=== PATIENT | male | born 1980 | race Caucasian/White ===

== ENCOUNTER 2018-10-08 21:22 | Emergency (ER) | payer MEDICAID, OTHER ==
[~2018-10-08] VITALS: Ht 182.9 cm; Wt 86.4 kg
[~2018-10-08 21:22] MED LIST: NO HOME MEDS
--- NOTE | 2018-10-08 21:37 | NUR ---
BIB police after fight with police. Patient is with Dr. Rojo and BLUE Markham who are examining his right shoulder.
[2018-10-08] MEDS ORDERED: ketamine 50 mg/ml 10ml vial IV ONE (21:50)
[2018-10-08] MEDS ORDERED: propofol 10mg/ml 20ml vial IV ONE (22:00)
--- NOTE | 2018-10-08 22:13 | NUR ---
Pending right shoulder reduction
--- NOTE | 2018-10-08 22:28 | NUR ---
Right shoulder reduction success, arm in sling. Post procedure vitals in progress
[2018-10-08 23:04] VITALS: BP 142/88
== END 2018-10-08 23:06 ==
LOC: ER 21:23
DX: S43.084A Other dislocation of right shoulder joint, initial encounter (principal); Z88.5 Allergy status to narcotic agent; Y04.0XXA Assault by unarmed brawl or fight, initial encounter; Y93.89 Activity, other specified; Y92.89 Other specified places as the place of occurrence of the external cause; Y99.9 Unspecified external cause status
CPT/HCPCS: 23650; 73020; 73030; 99285; J2704

== ENCOUNTER 2018-11-18 08:12 | Emergency (ER) | payer OTHER ==
[~2018-11-18] VITALS: Ht 177.8 cm; Wt 79.0 kg
[2018-11-18 08:44] VITALS: BP 124/70
[2018-11-18] MEDS ORDERED: ketorolac tromethamine 15mg/ml inj. IM ONE (09:25)
== END 2018-11-18 10:01 | disposition home or self-care (01) ==
LOC: ER 08:14
DX: M25.511 Pain in right shoulder (principal); Z88.5 Allergy status to narcotic agent
CPT/HCPCS: 73030; 96372; 99284; J1885

== ENCOUNTER 2018-12-19 15:43 | Outpatient (CLI) | payer OTHER | END 2018-12-19 15:50 | disposition home or self-care (01) | LOC: ORTHO 15:43 | PROVIDERS: ATTEND Orthopaedic Surgery | DX: S43.084D Other dislocation of right shoulder joint, subsequent encounter (principal); X58.XXXD Exposure to other specified factors, subsequent encounter | CPT/HCPCS: G0463 ==

== ENCOUNTER 2019-09-17 08:20 | Emergency (ER) | payer MEDICAID ==
[~2019-09-17] VITALS: Ht 177.8 cm; Wt 91.8 kg
[2019-09-17 09:11] VITALS: BP 95/65
== END 2019-09-17 09:12 | disposition home or self-care (01) ==
LOC: ER 08:21
DX: F15.10 Other stimulant abuse, uncomplicated (principal); Z88.5 Allergy status to narcotic agent; F32.9 Major depressive disorder, single episode, unspecified; F41.9 Anxiety disorder, unspecified; Z59.0 Homelessness
CPT/HCPCS: 99281

== ENCOUNTER 2020-02-10 21:06 | Emergency (ER) | payer MEDICAID ==
[~2020-02-10] VITALS: Ht 175.3 cm; Wt 100.0 kg
[2020-02-10] MEDS ORDERED: LIDOcaine 1% W/epiNEPHrine 1:200,000 10ml vial IJ ONE (21:30)
[2020-02-10] MEDS ORDERED: TETanus/Pertussis (Acell)/Diphther VAC/PF (Tdap-Adult) 0.5ml syringe IMVAC ONE (21:30)
[2020-02-10] MEDS ORDERED: LIDOcaine 1% w/epiNEPHrine 1:200,000 30ml vial IJ ONE (21:35)
[2020-02-10] MEDS ORDERED: ketorolac tromethamine 15mg/ml inj. IM ONE (22:25)
[2020-02-10 23:10] VITALS: BP 113/64
== END 2020-02-10 23:11 | disposition home or self-care (01) ==
LOC: ER 21:07
DX: S13.4XXA Sprain of ligaments of cervical spine, initial encounter (principal); R51.9 Headache, unspecified; Z88.0 Allergy status to penicillin; V49.9XXA Car occupant (driver) (passenger) injured in unspecified traffic accident, initial encounter; Y93.89 Activity, other specified; Y92.89 Other specified places as the place of occurrence of the external cause; Y99.8 Other external cause status
CPT/HCPCS: 72050; 96372; 99283; J1885

== ENCOUNTER 2021-03-02 14:16 | Emergency (ER) | payer MEDICAID ==
[~2021-03-02] VITALS: Ht 177.8 cm; Wt 95.5 kg
== END 2021-03-02 20:11 | disposition left against medical advice (07) ==
LOC: ER 14:17
DX: S61.411A Laceration without foreign body of right hand, initial encounter (principal); Z53.21 Procedure and treatment not carried out due to patient leaving prior to being seen by health care provider; W26.0XXA Contact with knife, initial encounter; Y93.89 Activity, other specified; Y92.89 Other specified places as the place of occurrence of the external cause; Y99.8 Other external cause status

== ENCOUNTER 2022-01-16 15:13 | Emergency (ER) | payer MEDICAID ==
[2022-01-16 15:29] VITALS: BP 150/78
[2022-01-16] MEDS ORDERED: ibuprofen tablet 400 MG TABLET PO ONE (15:50)
== END 2022-01-16 16:44 | disposition home or self-care (01) ==
LOC: ER 15:14
DX: M25.561 Pain in right knee (principal); F15.10 Other stimulant abuse, uncomplicated; Z88.5 Allergy status to narcotic agent; V87.7XXA Person injured in collision between other specified motor vehicles (traffic), initial encounter; Y93.89 Activity, other specified; Y92.89 Other specified places as the place of occurrence of the external cause; Y99.8 Other external cause status
CPT/HCPCS: 73564; 99283; A6449

== ENCOUNTER 2022-01-29 23:49 | Emergency (ER) | payer MEDICAID | END 2022-01-30 00:05 | disposition left against medical advice (07) | LOC: ER 23:50 | DX: M79.609 Pain in unspecified limb (principal); Z53.21 Procedure and treatment not carried out due to patient leaving prior to being seen by health care provider ==

== ENCOUNTER 2022-02-11 02:32 | Emergency (ER) | payer MEDICAID ==
[~2022-02-11] VITALS: Ht 177.8 cm; Wt 79.0 kg
[2022-02-11 02:39] VITALS: BP 140/83
[2022-02-11] MEDS ORDERED: ibuprofen tablet 400 MG TABLET PO ONE (05:15)
== END 2022-02-11 05:53 | disposition home or self-care (01) ==
LOC: ER 02:32
DX: M79.601 Pain in right arm (principal); F12.10 Cannabis abuse, uncomplicated
CPT/HCPCS: 99283

== ENCOUNTER 2022-02-27 06:55 | Emergency (ER) | payer MEDICAID ==
[~2022-02-27] VITALS: Ht 180.3 cm; Wt 87.0 kg
[2022-02-27 07:05] VITALS: BP 113/68
== END 2022-02-27 08:00 | disposition home or self-care (01) ==
LOC: ER 06:55
DX: M25.511 Pain in right shoulder (principal); F15.90 Other stimulant use, unspecified, uncomplicated; Z88.5 Allergy status to narcotic agent; Z79.899 Other long term (current) drug therapy
CPT/HCPCS: 99282; A4565

== ENCOUNTER 2022-03-01 01:01 | Emergency (ER) | payer MEDICAID ==
[~2022-03-01] VITALS: Ht 167.6 cm; Wt 90.9 kg
[2022-03-01 01:29] VITALS: BP 134/78
== END 2022-03-01 03:52 | disposition home or self-care (01) ==
LOC: ER 01:02
DX: B34.9 Viral infection, unspecified (principal); Z20.822 Contact with and (suspected) exposure to COVID-19
CPT/HCPCS: 87502; 87503; 87635; 99283; C9803

== ENCOUNTER 2022-03-30 13:06 | Emergency (ER) | payer MEDICAID ==
[~2022-03-30] VITALS: Ht 177.8 cm; Wt 90.9 kg
[2022-03-30 13:16] VITALS: BP 124/70
== END 2022-03-30 19:39 | disposition left against medical advice (07) ==
LOC: ER 13:07
DX: K08.89 Other specified disorders of teeth and supporting structures (principal); Z53.21 Procedure and treatment not carried out due to patient leaving prior to being seen by health care provider

== ENCOUNTER 2023-07-29 19:06 | Emergency (ER) | payer MEDICAID, OTHER ==
[~2023-07-29] VITALS: Ht 177.8 cm; Wt 112.7 kg
[2023-07-29 19:08] VITALS: BP 116/76; PULSE 71; O2SAT 96
[2023-07-29] MEDS: TETanus/Pertussis (Acell)/Diphther VAC/PF (Tdap-Adult) 0.5ml syringe IMVAC ONE (21:06)
[2023-07-29] MEDS: LIDOcaine 1% 30ml preserv. free vial SQ STA (21:35)
[2023-07-29 21:54] VITALS: RESP 17; TEMP 98.6
== END 2023-07-29 22:00 | disposition home or self-care (01) ==
LOC: ER 19:07
DX: S61.012A Laceration without foreign body of left thumb without damage to nail, initial encounter (principal); F15.90 Other stimulant use, unspecified, uncomplicated; Z88.5 Allergy status to narcotic agent; W26.0XXA Contact with knife, initial encounter; Y93.89 Activity, other specified; Y92.89 Other specified places as the place of occurrence of the external cause; Y99.8 Other external cause status
CPT/HCPCS: 12001; 90471; 90715; 99283; J7030; A6258; A6449

== ENCOUNTER 2023-07-30 14:46 | Emergency (ER) | payer OTHER ==
[~2023-07-30] VITALS: Ht 170.2 cm; Wt 113.4 kg
[2023-07-30 15:19] VITALS: BP 126/84; PULSE 70; O2SAT 98
[2023-07-30 15:59] VITALS: RESP 17; TEMP 98.5
== END 2023-07-30 16:01 | disposition home or self-care (01) ==
LOC: ER 14:47
DX: S61.210A Laceration without foreign body of right index finger without damage to nail, initial encounter (principal); Z88.5 Allergy status to narcotic agent; X58.XXXA Exposure to other specified factors, initial encounter; Y93.89 Activity, other specified; Y92.89 Other specified places as the place of occurrence of the external cause; Y99.8 Other external cause status
CPT/HCPCS: 99281

== ENCOUNTER 2023-10-15 03:11 | Emergency (ER) | payer MEDICAID, OTHER ==
[~2023-10-15] VITALS: Ht 175.3 cm; Wt 90.9 kg
[2023-10-15 03:25] VITALS: BP 131/86; PULSE 116; RESP 20; O2SAT 96
[2023-10-15 04:27] VITALS: TEMP 99.3
== END 2023-10-15 04:30 | disposition home or self-care (01) ==
LOC: ER 03:12
DX: F15.129 Other stimulant abuse with intoxication, unspecified (principal); F17.200 Nicotine dependence, unspecified, uncomplicated; R07.89 Other chest pain; Z88.5 Allergy status to narcotic agent
CPT/HCPCS: 93005; 99283

== ENCOUNTER 2024-02-22 16:59 | Emergency (ER) | payer MEDICAID ==
[~2024-02-22] VITALS: Ht 177.8 cm; Wt 95.5 kg
[2024-02-22 17:00] VITALS: BP 145/62; PULSE 97; RESP 16; TEMP 99.5; O2SAT 98
[2024-02-22] MEDS: ondansetron 4mg rapidly disintigrating tab PO ONE (20:15)
[2024-02-22] MEDS ORDERED: ONDA-245 PO (21:28)
== END 2024-02-22 21:34 | disposition home or self-care (01) ==
LOC: ER 17:00
DX: B34.9 Viral infection, unspecified (principal); F15.90 Other stimulant use, unspecified, uncomplicated; Z88.5 Allergy status to narcotic agent; Z20.822 Contact with and (suspected) exposure to COVID-19
CPT/HCPCS: 36415; 87502; 87503; 87811; 99283

== ENCOUNTER 2024-03-23 00:36 | Emergency (ER) | payer MEDICAID ==
[~2024-03-23] VITALS: Ht 170.2 cm; Wt 92.5 kg
[~2024-03-23 00:36] MED LIST changes: +ONDA-245 PO
[2024-03-23 00:40] VITALS: BP 112/70; PULSE 71; RESP 18; TEMP 97.7; O2SAT 98
[2024-03-23] MEDS: acetaminophen 325mg tablet PO ONE (01:41)
== END 2024-03-23 01:45 | disposition home or self-care (01) ==
LOC: ER 00:37
DX: S00.01XA Abrasion of scalp, initial encounter (principal); Z88.5 Allergy status to narcotic agent; V09.9XXA Pedestrian injured in unspecified transport accident, initial encounter; Y93.89 Activity, other specified; Y92.89 Other specified places as the place of occurrence of the external cause; Y99.8 Other external cause status
CPT/HCPCS: 99282

== ENCOUNTER 2024-08-14 21:36 | Emergency (ER) | payer MEDICAID ==
[~2024-08-14] VITALS: Ht 167.6 cm; Wt 80.0 kg
[2024-08-15] MEDS ORDERED: NYST15CR TOP (01:26)
--- NOTE | 2024-08-15 01:26 | Physician Documentation ---
History of Present Illness ~ Chief Complaint: Foot pain Stated Complaint: FOOT PAIN Time Seen by MD: 01:20 Primary Medical Doctor: [facility] HPI Patient presents to the emergency room for evaluation of skin irritation to bilateral feet. He believes this is secondary to excessive moisture as he ran out of socks. No fevers. Tetanus witin 5 years: Yes Medication Reconciliation Allergies: Coded Allergies: codeine (Verified Allergy, Unknown, 02/22/24) N/V Scheduled Ondansetron 8mg ODT (Ondansetron Odt), 1 TAB PO Q6H Miscellaneous Medications Home Med List (No Home Medications), (Reported) Past Medical History Past Medical History: No Pertinent History Past Surgical History: noncontributory Alcohol Use: None Drug Use: methamphetamine Lives with: Family Lives In: Assisted Care Review of Systems ROS All review of systems negative except as per HPI Physical Exam Vital Signs: Temperature: 98.2, Source: Oral, Heart Rate: 86, Respiratory Rate: 16, BP: 134/72, Pulse Oximetry: 99, Weight: 80.000 Oxygen Flow Rate: 0 Physical Exam General: Patient is awake, alert, oriented x4 in no acute distress and well appearing.~ Head: Normocephalic and atraumatic. Eyes: Conjunctival normal. EOMI. PERRL. ENT: Mucous membranes moist. Neck: Supple, trachea is midline. Chest: Clear to auscultation bilaterally without rales, rhonchi, or wheezes. There is no accessory muscle use or retractions. Cardiac: RRR without murmurs, gallops, or rubs. Extremities: Bilateral fungal infection to toes. Feet appear water logged Progress Results/Orders Results/Orders Vital Signs 08/14/24 21:38 Temp 98.2 Pulse 86 Resp 16 B/P (MAP) 134/72 Pulse Ox 99 O2 Flow Rate 0 Medical Decision Making Findings Patient presents to the emergency room for evaluation of bilateral foot changes as per HPI. Differentials include but are not limited to trench foot, fungal infection, cellulitis. Symptoms consistent with trench foot with superimposed fungal infection. Symptoms are mild and he had not feel he requires emergent labs or imaging. Foot hygiene discussed Departure Disposition: HOME / SELF CARE / HOMELESS Impression: Primary Impression: Trench foot Condition: Stable Discharge Instructions: Athlete's Foot, [id number] Additional Instructions: Keep feet dry as much as possible. Referrals: NO PRIMARY CARE PROVIDER (PCP) Prescriptions Nystatin (Nystatin) 100,000 Unit/Gram Cream.gm. 1 APPLIC TOP Q8H for 5 Days, #15 GM 0 Refills apply to affected area(s) Prov: SENTHIL SARGENT MD 08/15/24 Education Educated: Patient Educated regarding: diagnosis, treatment, need for follow up Signature Scribe Signature: No scribe Attestation: The note accurately reflects work and decisions made by me.Senthil Sargent MD 08/15/24 01:26 SENTHIL SARGENT MD Aug 15, 2024 01:26
[2024-08-15 01:40] VITALS: BP 130/70; PULSE 84; RESP 16; TEMP 98.6; O2SAT 99
== END 2024-08-15 01:41 | disposition home or self-care (01) ==
LOC: ER 21:36
DX: T69.022A Immersion foot, left foot, initial encounter (principal); T69.021A Immersion foot, right foot, initial encounter; Z88.5 Allergy status to narcotic agent; X58.XXXA Exposure to other specified factors, initial encounter; Y93.89 Activity, other specified; Y92.89 Other specified places as the place of occurrence of the external cause; Y99.8 Other external cause status
CPT/HCPCS: 99283

== ENCOUNTER 2024-10-17 10:44 | Emergency (ER) | payer MEDICAID ==
[~2024-10-17] VITALS: Ht 167.6 cm; Wt 89.7 kg
[~2024-10-17 10:44] MED LIST changes: +NYST15CR TOP
[2024-10-17 10:48] VITALS: BP 109/65; PULSE 72; RESP 18; O2SAT 97
--- NOTE | 2024-10-17 11:05 | Physician Documentation ---
History of Present Illness ~ Chief Complaint: Rash Stated Complaint: POISON OAK Time Seen by MD: 10:58 Primary Medical Doctor: [facility] 44-year-old male who presents to the emergency department for evaluation of what he believes is poison oak or poison nelia after walking through the [place] all day. Reports and visual exposure to both poison oak and poison nelia over the last day. She reports it is very itchy and continuing to spread. Medication Reconciliation Allergies: Coded Allergies: codeine (Verified Allergy, Unknown, 10/17/24) N/V Scheduled Nystatin (Nystatin), 1 APPLIC TOP Q8H Ondansetron 8mg ODT (Ondansetron Odt), 1 TAB PO Q6H Miscellaneous Medications Home Med List (No Home Medications), (Reported) Past Medical History Past Medical History: No Pertinent History Past Surgical History: noncontributory Alcohol Use: None Drug Use: methamphetamine Lives with: Family Lives In: Assisted Care Review of Systems ROS As stated above in the HPI, otherwise all systems are reviewed and negative. Physical Exam Vital Signs: Temperature: 97.4, Source: Oral, Heart Rate: 72, Respiratory Rate: 18, BP: 109/65, Pulse Oximetry: 97, Weight: 89.700 Oxygen Flow Rate: 0 Physical Exam VITALS: Reviewed and as above. GENERAL: Alert, no apparent distress. HEENT: Normocephalic, atraumatic, PERRL, EOMI, dry mucosa, no erythema RESPIRATORY: Lungs clear, normal breath sounds, no respiratory distress. CHEST: No accessory muscle use, no retractions CV: Regular rate, rhythm, no edema, no murmur, No: JVD GI: Soft, non-tender, bowels sounds present, no rebound, guarding, or rigidity BACK: No CVA tenderness, or swelling MUSCULOSKELETAL No deformities, no edema SKIN: Warm and dry, diffuse areas of rash consistent with poison oak to james ateral upper extremities trunk and face NEURO: Oriented x4, No motor or sensory deficit PSYCH: Normal mood and affect, no agitation Progress Results/Orders Results/Orders Vital Signs 10/17/24 10/17/24 10:48 11:22 Temp 97.4 97.4 Pulse 72 Resp 18 B/P (MAP) 109/65 Pulse Ox 97 O2 Flow Rate 0 Medical Decision Making Findings This patient who presents with rash poison oak x2 days. History and exam findings not consistent with dangerous etiologies of rash such as SJS/TEN, or secondary dangerous causes such as petechial rashes from thrombocytopenia or rickettsial infections. Rash does not appear urticarial with no signs of anaphylaxis either. Plan at this time is to treat symptomatically, instruct to follow up with PCP or derm PRN. Treated with IM injection of Kenalog Benadryl told to follow up with primary care provider or return to the emergency department if he has any worsening of current symptoms or any additional concerning symptoms present. Differential Dx:Considerations: Include: Abscess, AIDS/HIV, Anthrax (cutaneous), Atopic dermatitis, Candidiasis, Contact dermatitis, Drug reaction, Erythema multiforme, Erysipelas, Gangrene, Herpes zoster, Herpes simplex, Hidradenitis suppurativa, Impetigo, Intertrigo, Lymes disease, Molluscum contagiosum, Osteomyelitis, Pediculosis, Pityriasis rosea, Psoriaisis, RMSF, Rosacea, Scabies, Scarlet fever, Tinea, Urticaria, Varicella, Viral exanthema, Other Departure Disposition: HOME / SELF CARE / HOMELESS Impression: Primary Impression: Allergic contact dermatitis Additional Impression: Poison oak Condition: Stable Discharge Instructions: Contact Dermatitis, Pruritus Additional Instructions: For evaluation of contact dermatitis probably poison oak or poison nelia. At a you were given an injection of Kenalog and Benadryl please follow-up with your primary care provider or return to the emergency department if you have any additional symptoms or any concerning symptoms beyond what we evaluated today. Referrals: NO PRIMARY CARE PROVIDER (PCP) Education Educated: Patient Educated regarding: treatment, need for follow up Signature Scribe Signature: . Attestation: I have reviewed this case [id number] with the PA, including physical examination, laboratory and imaging results as appropriate. The patient was evaluated [id number] and I agree with the PA's notes. I agree with the findings, evaluation and disposition. ABELINO ANDRE Oct 17, 2024 11:05 KELSI SINGLETARY MD Oct 18, 2024 16:20
[2024-10-17] MEDS: triamcinolone acetonide 40mg/ml inj IM ONE (11:10)
[2024-10-17 11:22] VITALS: TEMP 97.4
== END 2024-10-17 11:24 | disposition home or self-care (01) ==
LOC: ER 10:45
DX: L23.7 Allergic contact dermatitis due to plants, except food (principal); F15.90 Other stimulant use, unspecified, uncomplicated; Z88.5 Allergy status to narcotic agent
CPT/HCPCS: 96372; 99283; J3301; Q0163

== ENCOUNTER 2024-10-20 15:57 | Emergency (ER) | payer MEDICAID ==
[~2024-10-20] VITALS: Ht 172.7 cm; Wt 56.4 kg
[2024-10-20 16:37] VITALS: BP 133/62; PULSE 89; RESP 16; TEMP 98.5; O2SAT 99
--- NOTE | 2024-10-20 16:45 | Physician Documentation ---
History of Present Illness ~ Chief Complaint: Extremity Swelling Stated Complaint: [facility] Primary Medical Doctor: [facility] HPI HPI being completed as part of medical screening exam: This is a 44-year-old male who presented with sudden onset left lower extremity swelling and pain with subjective fevers. He has had wounds present to the left lower extremity but states that this morning he woke up and it was significantly swollen with fever to the leg. Tetanus witin 5 years: Yes Medication Reconciliation Allergies: Coded Allergies: codeine (Verified Allergy, Unknown, 10/17/24) N/V Scheduled Nystatin (Nystatin), 1 APPLIC TOP Q8H Ondansetron 8mg ODT (Ondansetron Odt), 1 TAB PO Q6H Miscellaneous Medications Home Med List (No Home Medications), (Reported) Past Medical History Past Medical History: No Pertinent History Past Surgical History: noncontributory Alcohol Use: None Drug Use: methamphetamine Lives with: Family Lives In: Assisted Care Physical Exam Pulse Oximetry Reflects: adequate oxygenation Physical Exam Medical screening exam: Patient presents with left leg swelling, multiple weeping superficial wounds to the skin and warmth to palpation of the left leg. Location around the knee and up to the mid thigh. Cardiac: Regular rate and rhythm. Respiratory: Lungs are clear. Progress Results/Orders Results/Orders Vital Signs 10/20/24 16:37 Temp 98.5 Pulse 89 Resp 16 B/P (MAP) 133/62 Pulse Ox 99 O2 Flow Rate 0 Medical Decision Making Findings Patient presents through the emergency department with left lower extremity swelling sudden onset with pain and erythema and warmth to palpation. Concern for significant cellulitis. Currently, waiting room. Departure Disposition: 07 LEFT AWOL/ELOPED Impression: Primary Impression: Cellulitis of left lower extremity Referrals: NO PRIMARY CARE PROVIDER (PCP) Signature Scribe Signature: No scribe Attestation: The note accurately reflects work and decisions made by me.Venita Jones NP 10/22/24 15:34 This note was created with the assistance of voice recognition software whereby errors in grammar, syntax, and/or spelling may have occurred despite active proofreading efforts by the author. Please do not hesitate to contact the provider for clarification or for questions regarding the content of this document. VENITA PARK NP Oct 20, 2024 16:45
== END 2024-10-20 19:43 | disposition left against medical advice (07) ==
LOC: ER 15:58
DX: L03.116 Cellulitis of left lower limb (principal); Z88.5 Allergy status to narcotic agent
CPT/HCPCS: 99282

== ENCOUNTER 2024-10-20 21:44 | Inpatient (IN) | payer MEDICAID ==
[~2024-10-20] VITALS: Ht 195.6 cm; Wt 91.4 kg
[2024-10-20] MEDS: triamcinolone acetonide 40mg/ml inj IM ONE (23:49)
[2024-10-21 00:07] LABS: MEAN PLATELET VOLUME 7.6 FL (7.4-10.4); RED CELL DISTRIBUTION WIDTH 13.6 % (11.5-14.5)
[2024-10-21 00:19] LABS: CREATININE 1.22 MG/DL (0.60-1.10); TOTAL CARBON DIOXIDE 27.0 MMOL/L (24-32); eCRCL 96 ML/MIN; eGFR 64 ML/MIN
[2024-10-21] MEDS: CefTRIAXone/D5W-Rocephin 1gm 50 ML IV ONE (00:58)
[2024-10-21] MEDS ORDERED: potassium Cl 40MEQ/1/2NS 520ml 520 ML IV PRN (01:05)
[2024-10-21] MEDS ORDERED: mag hydrox/Alum hydrox/simeth 30ml oral suspension PO PRN (01:05)
[2024-10-21] MEDS ORDERED: magnesium sulf-water 2g/50mL 50 ML IV PRN (01:05)
[2024-10-21] MEDS ORDERED: potassium Cl 20 mEq SR tablet PO PRN (01:05)
[2024-10-21] MEDS ORDERED: magnesium sulf-water 4G/100mL 100 ML IV PRN (01:05)
[2024-10-21] MEDS ORDERED: ondansetron/PF 4mg/2ml inj IV PRN (01:05)
[2024-10-21] MEDS ORDERED: magnesium Cl slow-release 64mg tablet PO PRN (01:05)
--- NOTE | 2024-10-21 01:08 | Physician Documentation ---
History of Present Illness ~ Chief Complaint: Extremity Swelling Stated Complaint: SWOLLEN LEG Time Seen by MD: 23:18 Primary Medical Doctor: [facility] Source: patient Mode of Arrival: Ambulatory Exam Limitations: no limitations HPI Chief Complaint: Rash and swelling of left arm and left leg Caveat: None Independent Historians: None History of Present Illness: Patient is a 44-year-old man who comes in complaining of poison oak to his left arm and left lower extremity. This began two weeks ago. Patient has complaints of severe itching and swelling and pain in the left upper and left lower extremity. No reported fever. Patient denies any other associated symptoms. Review of systems: All systems were reviewed and are negative except for what is indicated in the history of present illness. Past Medical History: Depression, bipolar Past Surgical History: Orthopedic surgeries Social History: Marijuana use, methamphetamine use, denies alcohol use, denies tobacco use Medications: Reviewed as documented Nursing Notes Allergies: Reviewed as documented in Nursing Notes Medication Reconciliation Allergies: Coded Allergies: codeine (Verified Allergy, Unknown, 10/17/24) N/V Scheduled Divalproex Sodium (Divalproex Sodium), 1 TAB PO HS, (Reported) Doxycycline Hyclate (Doxycycline Hyclate), 100 MG PO BID Ondansetron 8mg ODT (Ondansetron Odt), 1 TAB PO Q6H Risperidone (Risperidone), 1 TAB PO HS, (Reported) Triamcinolone Acetonide (Triamcinolone Acetonide), 1 APPLIC TP BID Discontinued Medications Home Med List (No Home Medications), (Reported) Nystatin (Nystatin), 1 APPLIC TOP Q8H Past Medical History Past Medical History: No Pertinent History Past Surgical History: noncontributory Smoking Status: Unknown if ever smoked Alcohol Use: None Drug Use: methamphetamine Lives with: Family Lives In: Assisted Care Review of Systems All Other Systems at this time: Reviewed and Negative ROS Patient denies any other acute symptoms other than above. All other systems are negative Physical Exam Vital Signs: RN Vital Signs have been reviewed: Yes, Temperature: 98.5, Source: Temporal, Heart Rate: 102, Respiratory Rate: 18, BP: 151/72, Pulse Oximetry: 96, Weight: 91.400 Pulse Oximetry Reflects: adequate oxygenation Physical Exam General Appearance: Distress HEENT: Normal OP, moist oral mucosa, PERRL, EOMI Neck: supple, normal ROM, trachea midline Pulmonary: No respiratory distress, CTA, BS equal Cardiac: RRR, no murmur, rub or gallop, GI: nondistended, soft, nontender, normal bowel sounds, no guarding, no rebound Extremities: Upper extremity is diffusely swollen with a rash that is erythematous and hot to touch. There are pustules and crust that looks like honeycomb. Skin is raised in areas and areas of excoriation where he has scratched. Lower extremity is diffusely swollen. Patient has some crusting of the left thigh. Left Calf is soft and nontender. Skin: intact, dry, warm Neuro: AAOx3, speech is clear, no focal motor weakness Psych: normal affect, good eye contact, no apparent hallucination, normal speech Progress Results/Orders Results/Orders Orders - PAUL MOCTEZUMA MD Page Hospitalist (10/21/24 00:43) Fill Out Med Reconciliation (10/21/24 00:43) Patient In Gown (10/21/24 00:43) Saline Lock (10/21/24 00:43) Vl Venous (10/21/24 01:01) Vl Venous (10/21/24 01:01) Completed Orders - PAUL MOCTEZUMA MD Cbc/Diff (10/20/24 23:34) BMP (10/20/24 23:34) Triamcinolone Acet 40mg/Ml Inj (Kenalog- (10/20/24 23:35) Ceftriaxone/S6c-Rolbmtez 1gm (Rocephin 1 (10/21/24 00:35) Vl Venous (10/21/24 01:01) Vl Venous (10/21/24 01:01) Laboratory Tests Test 10/20/24 23:49 White Blood Count 18.8 H Red Blood Count 4.74 Hemoglobin 13.9 L Hematocrit 40.8 L Mean Corpuscular Volume 86.1 Mean Corpuscular Hemoglobin 29.3 Mean Corpuscular Hemoglobin Concent 34.0 Red Cell Distribution Width 13.6 Platelet Count 353 Mean Platelet Volume 7.6 Neutrophils (%) (Auto) 91.6 H Lymphocytes (%) (Auto) 2.9 L Monocytes (%) (Auto) 4.5 Eosinophils (%) (Auto) 0.7 Basophils (%) (Auto) 0.3 Neutrophils # (Auto) 17.2 H Lymphocytes # (Auto) 0.5 L Monocytes # (Auto) 0.8 Eosinophils # (Auto) 0.1 Basophils # (Auto) 0.1 CBC Comment Sodium Level 133 L Potassium Level 3.6 Chloride Level 100 Carbon Dioxide Level 27.0 Anion Gap 6 L Blood Urea Nitrogen 13 Creatinine 1.22 H Estimated GFR/1.73 m2 64 BUN/Creatinine Ratio 10.7 Glucose Level 105 H Lactic Acid Level 1.0 Calcium Level 9.1 Albumin 3.9 Chemistry Comments Medical Decision Making Findings Differential diagnosis includes but is not limited to: Poison oak dermatitis, cellulitis, DVT Venous Doppler left upper extremity and left lower extremity, indication: Swelling Impression: Laboratory data independent interpretation: CBC: Severe leukocytosis of 18.8 CMP: Sodium 133, creatinine mildly elevated 1.22 Emergency department course/medical decision-making: Patient is a 44-year-old man who is homeless and uses methamphetamine. He may have gotten poison oak which has gotten secondarily infected. Patient has significant erythema and swelling of the left upper and left lower extremity consistent with cellulitis. Patient is started on IV Rocephin initially upon arrival. Patient has an elevated white blood cell count consistent with infection. Test results and treatment plan reviewed with the patient. Patient will require admission for IV antibiotics. Patient's rash is consistent with impetigo. Patient will be given IV vanco. Consultation/communications: 1:00 a.m.: Case discussed with the resident hospitalist Dr. Aponte. He will evaluate the patient for admission. Departure Time of Disposition: 01:04 Disposition: ADMITTED INPATIENT Admitted to Inpatient Unit: to hospitalist Admission Level of Care: Med/Surg Impression: Primary Impression: Cellulitis of left upper extremity Additional Impression: Poison oak dermatitis Prescriptions Doxycycline Hyclate (Doxycycline Hyclate) 100 Mg Tablet.dr 100 MG PO BID for 7 Days, #14 TAB Prov: MU PA MD 10/24/24 Triamcinolone Acetonide (Triamcinolone Acetonide) 0.1 % Oint..gm. 1 APPLIC TP BID for 7 Days, #1 GM Apply over left upper and lower extremity Prov: MU PA MD 10/24/24 Education Educated: Patient Educated regarding: diagnosis, treatment Signature Scribe Signature: No scribe Attestation: No scribe PAUL MOCTEZUMA MD Oct 21, 2024 01:08
[2024-10-21] MEDS: normal saline 1000ml 1,000 ML IV SCH (01:33)
--- NOTE | 2024-10-21 01:36 | HISTORY AND PHYSICAL-Residence ---
History & Physical Providers to CC Resident Creating Document: ANGEL LOVELLTODYONY DINORAH CC: JEFFREY MEJÍA MD ~ History of Present Illness Primary Medical Doctor: [facility] Reason for Admit\Complaint: Left arm rash History of Present Illness Patient is a 44-year-old male with history of illicit drug use, depression and bipolar disorder who came to the ED due to left arm swelling and rash. Patient reports that yesterday when he was walking from [place] to [place] he presented with an acute rash to left arm and left leg which he attributes to poison oak. Patient reports increasing local pain, 4/10 in intensity, described as burning/itching, as well as local warmth. He also reports subjective fevers. He denies any other subjective symptoms. Patient does endorse use of IV methamphetamines. Of note, patient was moderately agitated/anxious during my exam and is unable to provide an accurate history. Allergies: Coded Allergies: codeine (Verified Allergy, Unknown, 10/17/24) N/V Home Medications Home Medications Active Nystatin 100,000 Unit/Gram Cream.gm. 1 Applic TOP Q8H 5 Days apply to affected area(s) Ondansetron Odt (Ondansetron HCl) 8 Mg Tab.rapdis 1 Tab PO Q6H 3 Days Reported No Home Medications (Home Med List) Each Past Medical History Past Medical History Illicit drug use Depression Bipolar disorder Past Surgical History Surgical History Comment Bilateral lower extremity orthopedic surgeries, unspecified Past Social History Smoking: Non-Smoker Alcohol Use: None Drug Use: Marijuana, Methamphetamine Lives with: Other Lives In: Other (Nursing Home) ROS Constitutional: Reports: see HPI Eyes: Denies: no symptoms reported, pain, discharge, blurred vision, double vision, itching, photophobia, redness, tearing, other ENT: Denies: no symptoms reported, see HPI, ear pain, ear bleeding, ear discharge, hearing loss, ear ringing, nose pain, nose bleeding, nose congestion, nose discharge, throat pain, throat swelling, voice change, mouth pain, mouth bleeding, mouth swelling, other Respiratory: Denies: no symptoms reported, cough, orthopnea, shortness of breath, SOB with exertion, SOB at rest, stridor, wheezing, hemoptysis, pain with breathing, other Cardiovascular: Denies: no symptoms reported, chest pain, left arm pain, diaphoresis, lightheadedness, syncope, edema, palpitations, irregular heart rate, other Gastrointestinal: Denies: no symptoms reported, abdomen distended, abdominal pain, nausea, vomiting, diarrhea, constipated, melena, hematemesis, hematochezia, rectal bleeding, rectal pain, dysphagia, poor appetite, poor fluid intake, other Genitourinary: Denies: no symptoms reported, burning, discharge, dysuria, frequency, flank pain, hematuria, incontinence, pain, decreased urine output, urgency, other Male Genitalia: Reports: see HPI; Denies: no symptoms reported, penile discharge, penile sore, testicular pain, testicular swelling, other Neurological: Denies: no symptoms reported, speech problem, headache, dizziness, fainting, tingling, left sided numbness, right sided numbness, left sided weakness, right sided weakness, problems walking, unable to move lower ext, unable to move upper ext, petit mal seizures, tonic-clonic seizures, cognitive dysfunction, other Musculoskeletal: Denies: no symptoms reported, pain, swelling, back pain, gout, joint pain, joint swelling, muscle pain, muscle swelling, muscle stiffness, neck pain, other Integumentary: Reports: see HPI Allergic/Immunologic: Reports: see HPI Hematologic/Lymphatic: Denies: no symptoms reported, anemia, blood clots, easy bleeding, easy bruising, swollen glands, other Endocrine: Denies: no symptoms reported, excessive sweating, flushing, intolerance to cold, intolerance to heat, increased hunger, increased thrist, increased urine, unexplained weight gain, unexplained weight loss, other Psychiatric: Denies: no symptoms reported, depression, anxiety, sleeplessness, hopeless, suicidal, hallucinations, other Exam Vitals: Vital Signs Date Time Temp Pulse Resp B/P (MAP) Pulse Ox O2 Delivery O2 Flow Rate FiO2 10/20/24 21:47 98.5 102 18 151/72 96 General: General: Agitated/anxious, oriented to place, time, and person HEENT: No pallor present, no icterus, moist mucous membranes Neck: No masses and tenderness Resp: Unlabored. Lungs clear to auscultation bilaterally. Chest: Normal expansion Cardiovascular: Regular Rate and rhythm, normal S1 and S2 without murmur, rub or gallop Abdomen: Soft and nontender, no organomegaly, no guarding and rigidity, bowel sounds present Neuro: No focal weakness in the upper and lower limb muscles, power of the muscles 5/5 bilateral upper and lower extremities, normal reflexes bilaterally. Cranial nerves intact Extremities: He has a pustulous/crusty rash with significant edema and surrounding erythema on his left upper extremity. He also has some crusting and erythema on his left thigh. No cyanosis or clubbing Skin: As above Psych: Anxious, but cooperative with care Diagnostic Data Last Recorded Lab Results: 10/20/24 2349 10/20/24 2349 Advance Care Planning Advanced Care plannin - 30 Minutes Additional Plan Patient is a 44-year-old male with history of illicit drug use, depression and bipolar disorder who came to the ED due to left arm swelling and rash. Admitted for management of possible poison oak reaction with associated skin and soft tissue infection. Skin and soft tissue infection: bollous impetigo/cellulitis Sepsis secondary to above Possible poison oak reaction Patient is tachycardic, but otherwise hemodynamically stable. Currently afebrile WBC is 18.8 Received IV fluids, single dose of ceftriaxone and IM triamcinolone in the ED Given history of IV drug use. Will cover MRSA Start IV vancomycin Mupirocin ointment b.i.d. Continue IV NS at 150 cc/hour Blood cultures ordered. Patient did receive ceftriaxone prior to blood cultures MEMO likely prerenal 2/2 tubular stasis IV fluids as above Urine lytes ordered Substance abuse: Methamphetamines Patient reports use of IV methamphetamines. He also reports he has used it as a suppository Substance abuse navigator consult Depression Bipolar disorder Pending med rec Code Status: Full code DVT prophylaxis: Heparin Analgesia/sedation: Morphine Nutrition: Regular diet Prognosis: Guarded Disposition: Admit to surgical unit. Continue medical management Yony Ribera MD Internal Medicine Resident PGY-2 Date of Service: Oct 21, 2024 Billing Provider: JEFFREY MEJÍA MD, LEONARDO LUIS Oct 21, 2024 01:36
[2024-10-21 03:00] VITALS: BP 117/63; PULSE 78; RESP 18; TEMP 100.1; O2SAT 99
[2024-10-21] MEDS: VANCOMYCIN 2GM/400ML H20 (PEG) 400 ML IV ONE ×2 (03:58→04:46)
[2024-10-21 04:12] VITALS: RESP 18; O2SAT 99
[2024-10-21 06:00] VITALS: BP 119/60; PULSE 82; RESP 16; TEMP 98.1; O2SAT 97
[2024-10-21] MEDS: K and/or MAG REPLACEMENT MC SCH (07:51)
[2024-10-21] MEDS: docusate sod 100mg capsule PO SCH (07:54)
[2024-10-21] MEDS: heparin, porcine 5000 units/ml vial SQ SCH (07:54)
[2024-10-21] MEDS: potassium Cl 20 mEq SR tablet PO PRN (07:54)
[2024-10-21] MEDS: CefTRIAXone 2gm/D5W 50ml BAG 50 ML IV SCH (08:00)
[2024-10-21] MEDS: normal saline 1000ml 1,000 ML IV ONE ×3 (08:14→09:50)
[2024-10-21 08:48] LABS: MEAN PLATELET VOLUME 7.8 FL (7.4-10.4); RED CELL DISTRIBUTION WIDTH 14.3 % (11.5-14.5)
--- NOTE | 2024-10-21 09:04 | VASCULAR REPORT ---
VASC VL VENOUS HISTORY: pain/swelling COMPARISON: None TECHNIQUE: Duplex doppler evaluation of the deep venous system of the lower neck and proximal upper e xtremity(ies), including color doppler and spectral/pulsed waveform analysis was performed. FINDINGS: Left: - Internal jugular vein: Compressible - Subclavian vein: Visible portion is patent - Axillary vein: Visible portion is patent - Brachial vein: Compressible - Cephalic vein: Compressible - Basilic vein: Compressible - Ulnar vein: Compressible - Radial vein: Compressible - Other: Nothing IMPRESSION: No left upper extremity deep venous thrombosis.
--- NOTE | 2024-10-21 09:06 | VASCULAR REPORT ---
VASC VL VENOUS HISTORY: pain / swelling COMPARISON: None TECHNIQUE: Duplex doppler evaluation of the deep venous system of the lower extremity from the common femoral veins, superficial femoral vein, great saphenous vein, deep femoral vein, popliteal vein, an d calf veins, including color doppler and spectral/pulsed waveform analysis, was performed. FINDINGS: Left: - Common femoral vein: Compressible - Deep femoral vein: Compressible - Femoral vein: Compressible - Popliteal vein: Compressible - Posterior tibial vein: Waveforms present - Peroneal vein: Waveforms present - Other: Nothing IMPRESSION: No left lower extremity deep venous thrombosis.
[2024-10-21 09:25] LABS: CREATININE 0.89 MG/DL (0.60-1.10); TOTAL CARBON DIOXIDE 23.6 MMOL/L (24-32); eCRCL 132 ML/MIN; eGFR > 90 ML/MIN
[2024-10-21] MEDS: ringers solution, lacted 1,000 ML IV SCH (09:35)
[2024-10-21 10:00] VITALS: BP 97/49; PULSE 59; RESP 16; TEMP 97.6; O2SAT 98
[2024-10-21] MEDS ORDERED: iohexol 300mg/ml 100ml inj. ONE (10:29)
[2024-10-21] MEDS: LidoCAINE 2% Topical Jelly 11mL syringe (UROJET) TOP ONE (11:40)
[2024-10-21 12:07] LABS: LEUKOCYTE ESTERASE ,URINE NEGATIVE (Neg); NITRITES, URINE NEGATIVE (Neg); OCCULT BLOOD,URINE NEGATIVE (Neg)
[2024-10-21 12:16] LABS: UA COLLECTION TYPE CLN CATCH MIDSTREAM; URINE AMPHETAMINE SCREEN POSITIVE (Neg); URINE BARBITUATE SCREEN NEGATIVE (Neg); URINE BENZODIAZEPINES SCREEN NEGATIVE (Neg); URINE CANNABINOID SCREEN POSITIVE (Neg); URINE COCAINE SCREEN NEGATIVE (Neg); URINE METHADONE SCREEN NEGATIVE (Neg); URINE OPIATE SCREEN POSITIVE (Neg); URINE PHENCYCLIDINE SCREEN NEGATIVE (Neg)
[2024-10-21 13:03] LABS: UA EOSINOPHILS NO EOS /HPF
[2024-10-21] MEDS: vancomycin/NS 1 GM ADD-VANTAGE 250 ML IV SCH (13:06)
[2024-10-21 13:12] LABS: CREATININE,URINE RANDOM 95.0 MG/DL; TOTAL PROTEIN,URINE RANDOM 27.8 MG/DL; UA UREA RANDOM 653.0 MG/DL
[2024-10-21] MEDS ORDERED: vancomycin/NS 1 GM ADD-VANTAGE 250 ML IV SCH (14:00)
--- NOTE | 2024-10-21 14:33 | RADIOLOGY REPORT ---
CLINICAL INFORMATION: 44 years old, Male; cellulitis, sepsis . TECHNIQUE: Axial CT images of the left lower extremity from just above the level of the left hip to t he left midfoot were obtained after the injection of 100 mL Omnipaque 300 IV contrast. Coronal and sa gittal reformatted images were obtained, reviewed, and stored. Portions of the contralateral right lo wer leg were included within the tplyy-xh-opfr of the exam. All CT scans at this medical facility are performed using dose modulation techniques as appropriate to a performed exam including the followin g: Automated exposure control was utilized; adjustment of the MA and/or KV according to patient size; and use of iterative reconstruction technique. CTDIvol = 12.55 mGy DLP = 1385.5 mGy-cm COMPARISON: None FINDINGS: Moderate subcutaneous edema and mild enhancement in the mid to distal left thigh, left lowe r leg, and left ankle, which is nonspecific, but may be seen with cellulitis in the appropriate clini felicia setting. No organized fluid collection identified to suggest abscess. No soft tissue gas visualiz ed. There are postsurgical changes in the distal left fibula and in the medial malleolus of the dista l left tibia from prior open reduction internal fixation. Surgical hardware appears grossly intact, a lthough limited evaluation of the surgical hardware due to the ilasw-pu-cbie of the exam. No erosive changes or cortical destruction are seen in the visualized osseous structures of the left lower extre mity to suggest osteomyelitis. IMPRESSION: 1. Moderate subcutaneous edema and mild enhancement in the left lower extremity as described above, w hich may be seen with cellulitis in the appropriate clinical setting. No organized peripherally enhan cing fluid collection identified to suggest abscess. No associated soft tissue gas. 2. No CT evidence for osteomyelitis. Correlate with clinical findings. If there is clinical suspicio n for osteomyelitis, MRI could be obtained.
--- NOTE | 2024-10-21 14:40 | RADIOLOGY REPORT ---
CLINICAL INFORMATION: 44 years old, Male; cellulitis, sepsis. TECHNIQUE: Axial CT images of the left upper extremity from the level of the shoulder through the wri st were obtained after the administration of 100 mL omnipaque 300 IV contrast. Coronal and sagittal r eformatted images were obtained, reviewed, and stored. All CT scans at this medical facility are per formed using dose modulation techniques as appropriate to a performed exam including the following: A utomated exposure control was utilized; adjustment of the MA and/or KV according to patient size; and use of iterative reconstruction technique. CTDIvol = 29.05 mGy DLP = 2073.06 mGy-cm COMPARISON: None available at the time of dictation. FINDINGS: Patient was imaged with the left arm at the side of the patient's body within the scanner. Portions of the left upper extremity are excluded from the bleth-iv-ysfg of the exam. Moderate subcu taneous edema and mild enhancement in the left upper extremity, most prominent near the level of the elbow through the forearm, possible cellulitis in the appropriate clinical setting. There are areas o f fluid density in the left forearm. No organized peripherally enhancing fluid collection identified to suggest abscess within the mqstu-rs-nkqp of the exam. Osseous structures appear intact with no cor tical destruction or erosive changes to suggest osteomyelitis. IMPRESSION: 1. Subcutaneous edema and mild enhancement in the left upper extremity, may be seen with cellulitis i n the appropriate clinical setting. 2. No peripherally enhancing fluid collection identified to suggest abscess. 3. No CT evidence for osteomyelitis.
[2024-10-21] MEDS: piperacillin/tazo 3.375gm/50ml 50 ML IV SCH (15:20)
[2024-10-21 18:00] VITALS: BP 120/56; PULSE 79; RESP 18; TEMP 98; O2SAT 99
[2024-10-21 22:00] VITALS: BP 101/58; PULSE 70; RESP 16; TEMP 98.6; O2SAT 98
[2024-10-22] MEDS: VANCOMYCIN LEVEL IV ONE (05:03)
[2024-10-22 05:45] LABS: MEAN PLATELET VOLUME 8.6 FL (7.4-10.4); RED CELL DISTRIBUTION WIDTH 13.9 % (11.5-14.5)
[2024-10-22 06:00] VITALS: BP 111/61; PULSE 63; RESP 18; TEMP 98.6; O2SAT 96
[2024-10-22 06:01] LABS: CREATININE 0.92 MG/DL (0.60-1.10); TOTAL CARBON DIOXIDE 25.1 MMOL/L (24-32); eCRCL 128 ML/MIN; eGFR 89 ML/MIN
[2024-10-22] MEDS: magnesium hydroxide 30ml (MOM) UD suspension PO PRN (08:27)
[2024-10-22 10:00] VITALS: BP 103/57; PULSE 65; RESP 15; TEMP 97.3; O2SAT 98
--- NOTE | 2024-10-22 10:52 | PROGRESS NOTE ---
Daily Progress Note Providers to CC ~ Antibiotic Timeout Antibiotic Ordered?: Yes If Yes, Indications: Cellulitis Subjective No acute events overnight. Patient examined at bedside. No new complaints. Patient denies chest pain, sob, palpitations, abdominal pain, n/v/d. Vss, afebrile, labs unremarkable. CT shows cellulitis of LUE&LLE without evidence of abscess or osteomyelitis. Continued on IVF and empirical antibiotics. Objective Vital Signs Date Time Temp Pulse Resp B/P (MAP) Pulse Ox O2 Delivery O2 Flow Rate FiO2 10/22/24 08:00 Room Air 10/21/24 22:15 16 10/21/24 22:00 98.6 70 101/58 (65) 98 Result Diagram: 10/22/24 0300 10/22/24 0449 Physical Exam General: Generalized weakness, A&Ox 3, NAD HEENT: Normocephalic, PERRLA Neck: Supple, trachea midline, no JVD Chest: Clear to auscultation bilaterally Cardiovascular: RRR, S1&S2 GI: Soft and nontender Extremities: +1 diffuse edema LUE and LLE AIR AND HYDRONIC BALANCING TECHNICIAN: CN II-XII intact, no focal deficits Musculoskeletal: No paraspinal muscle tenderness, no muscle spasm Skin: erythematous LUE and LLE with scattered scabs, no drainage Problem\Assessment\Plan Assessment & Plan Cellulitis, LUE LLE Sepsis 2/2 cellulitis Prerenal MEMO 2/2 sepsis/vasomotor nephropathy Methamphetamine abuse -fluid resuscitation followed by ary rodriguez Zosyn; CT shows cellulitis of LUE&LLE without evidence of abscess or osteomyelitis -10/22: wbc downtrending, fever resolved; substance use navigator/school social worker eval Depression Bipolar disorder Code Status: Full code DVT/VT prophylaxis: Heparin Date of Service: Oct 22, 2024 Billing Provider: OSEAS ENNIS Common Visit Codes: [id number] INP/OBS CARE(HIGH) OSEAS ENNIS Oct 22, 2024 10:52
[2024-10-22] MEDS: VANCOmycin 1250MG/NS 250ml Bag 250 ML IV SCH (13:39)
[2024-10-22] MEDS ORDERED: DICLOFENAC SODIUM 1% gel 1 50GM tube TP PRN (17:10)
[2024-10-22 18:00] VITALS: BP 113/59; PULSE 56; RESP 17; TEMP 97.4; O2SAT 99
[2024-10-22 20:00] VITALS: RESP 17; O2SAT 99
[2024-10-22 22:00] VITALS: BP 97/55; PULSE 64; RESP 16; TEMP 99.3; O2SAT 99
[2024-10-22] MEDS ORDERED: DIVA-74 PO (22:44)
[2024-10-22] MEDS ORDERED: RISP-31 PO (22:44)
[2024-10-23 04:58] LABS: MEAN PLATELET VOLUME 8.0 FL (7.4-10.4); RED CELL DISTRIBUTION WIDTH 14.2 % (11.5-14.5)
[2024-10-23 05:24] LABS: CREATININE 0.93 MG/DL (0.60-1.10); TOTAL CARBON DIOXIDE 27.0 MMOL/L (24-32); eCRCL 126 ML/MIN; eGFR 88 ML/MIN
[2024-10-23 06:00] VITALS: BP 98/55; PULSE 53; RESP 16; TEMP 97.7; O2SAT 99
[2024-10-23 10:00] VITALS: BP 93/61; PULSE 59; RESP 17; TEMP 97.8; O2SAT 99
[2024-10-23] MEDS: VANCOMYCIN LEVEL IV ONE (13:22)
[2024-10-23 18:00] VITALS: BP 107/64; PULSE 55; RESP 18; TEMP 97.6; O2SAT 98
[2024-10-23 20:00] VITALS: RESP 18; O2SAT 98
--- NOTE | 2024-10-23 20:03 | PROGRESS NOTE ---
Daily Progress Note Providers to CC ~ Antibiotic Timeout Antibiotic Ordered?: Yes Subjective Patient was seen in his room in presence of nursing staff. Signs of chronic appearing skin excoriation/ cellulitis present over left upper and lower extremity. Mild erythema present over back too Objective Vital Signs Date Time Temp Pulse Resp B/P (MAP) Pulse Ox O2 Delivery O2 Flow Rate FiO2 10/23/24 10:00 97.8 59 17 93/61 (72) 99 10/23/24 08:00 Room Air Result Diagram: 10/23/2442110/23/24 042 General-patient not in any acute distress, alert awake oriented, age-appropriate HEENT-atraumatic normocephalic, neck supple without elevated JVD, no thyromegaly or carotid bruit. No lymphadenopathy bilaterally. Eyes-no icterus or pallor seen in eyes Chest-clear to auscultation bilaterally, breathing nonlabored no tachypnea, no wheezing, no crepitation, no crackles. Heart-S1-S2 normal, regular heart rate no murmur Abdomen bowel sounds positive on auscultation, soft nondistended nontender no guarding, no rigidity Skin/ Extremity- Signs of chronic appearing skin excoriation/ cellulitis present over left upper and lower extremity. Mild erythema present over back too Neurology-grossly intact, nonfocal alert awake oriented Extremity- no pedal edema able to move all 4 extremities Psychiatry - patient is not confused or agitated cooperated during physical examination Problem\Assessment\Plan Assessment & Plan Cellulitis, LUE LLE Sepsis 2/2 cellulitis Prerenal MEMO 2/2 sepsis/vasomotor nephropathy -fluid resuscitation followed by continous,on vanco, d/c Zosyn; CT shows cellulitis of LUE&LLE without evidence of abscess or osteomyelitis -10/22: wbc downtrending, fever resolved; Methamphetamine abuse substance use navigator/social work lecturer eval Depression Bipolar disorder Code Status: Full code DVT/VT prophylaxis: Heparin Patient's current condition is guarded we will continue to follow patient in a.m. Date of Service: Oct 23, 2024 Billing Provider: MU PA MD Common Visit Codes: [id number] INP/OBS CARE(HIGH) MU PA MD Oct 23, 2024 20:03
[2024-10-23] MEDS: triamcinolone acetonide 0.1% ointment 15gm TP SCH (20:17)
[2024-10-23] MEDS: divalproex 250mg tablet, delayed-release PO SCH (20:59)
[2024-10-23 22:00] VITALS: BP 107/62; PULSE 58; RESP 19; TEMP 97.8; O2SAT 98
[2024-10-24 04:57] LABS: MEAN PLATELET VOLUME 7.9 FL (7.4-10.4); RED CELL DISTRIBUTION WIDTH 14.1 % (11.5-14.5)
[2024-10-24 05:24] LABS: CREATININE 0.79 MG/DL (0.60-1.10); TOTAL CARBON DIOXIDE 24.5 MMOL/L (24-32); eCRCL 149 ML/MIN; eGFR > 90 ML/MIN
[2024-10-24 06:00] VITALS: BP 118/62; PULSE 55; RESP 19; TEMP 98; O2SAT 98
[2024-10-24 08:00] VITALS: RESP 18; O2SAT 98
[2024-10-24 11:00] VITALS: BP 106/68; PULSE 55; RESP 18; TEMP 97.9; O2SAT 98
[2024-10-24] MEDS ORDERED: TRIA15OI2 TP (11:29)
[2024-10-24] MEDS ORDERED: DOXY-243 PO (11:29)
--- NOTE | 2024-10-24 20:19 | DISCHARGE SUMMARY ---
Discharge Summary Providers to CC ~ Discharge Summary Admission Diagnosis: CELLULITIS Hospital Course DATE OF ADMISSION: October 21, 2024 DATE OF DISCHARGE: October 24, 2024 EVEN THOUGH I DISCHARGE THE PATIENT THIS MORNING PATIENT LEFT AGAINST MEDICAL ADVICE WITHOUT GETTING ANY INFORMATION OR DOCUMENTS. NURSING STAFF VERONICA AWARE ABOUT IT Discharge Diagnosis\Comment: Cellulitis, LUE LLE Sepsis 2/2 cellulitis Prerenal MEMO 2/2 sepsis/vasomotor nephropathy Methamphetamine abuse Depression Bipolar disorder Operations\Procedures: None Consultants: None Complications: None Condition on DC: Stable New Medications: Doxycycline Hyclate (Doxycycline Hyclate) 100 Mg Tablet.dr 100 MG PO BID for 7 Days, #14 TAB Triamcinolone Acetonide (Triamcinolone Acetonide) 0.1 % Oint..gm. 1 APPLIC TP BID for 7 Days, #1 GM Apply over left upper and lower extremity Continued Medications: Divalproex Sodium (Divalproex Sodium) 250 Mg Tablet.dr 1 TAB PO HS Ondansetron 8mg ODT (Ondansetron Odt) 8 Mg Tab.rapdis 1 TAB PO Q6H for nausea/vomiting for 3 Days, #12 TAB 0 Refills Risperidone (Risperidone) 1 Mg Tablet 1 TAB PO HS Discontinued Medications: Home Med List (No Home Medications) Each Nystatin (Nystatin) 100,000 Unit/Gram Cream.gm. 1 APPLIC TOP Q8H for 5 Days, #15 GM 0 Refills apply to affected area(s) Discharge Summary: Patient is 44-year-old male admitted for Cellulitis, LUE LLE Sepsis 2/2 cellulitis Prerenal MEMO 2/2 sepsis/vasomotor nephropathy -fluid resuscitation followed by continous,on vanco, d/c Zosyn; CT shows cellulitis of LUE&LLE without evidence of abscess or osteomyelitis -10/22: wbc downtrending, fever resolved; Methamphetamine abuse substance use navigator/high school social science teacher eval Depression Bipolar disorder Code Status: Full code DVT/VT prophylaxis: Heparin Patient's clinical condition improved and she was feeling much better. She has been afebrile getting discharged home in stable condition. Patient was evaluated by Physical therapy team and she is able to ambulate. Patient is seen and examined on the day of discharge discharge instructions provided to the patient. All labs diagnostic workup and discharge plan discussed with patient in detail in visit before discharge all questions and concerns answered to the best of my professional medical knowledge.Patient needs follow-up with primary care physician urgent care or in [facility] for further management of left upper and lower extremity cellulitis/chronic eczema. It will be beneficial for him if he gets the referral for automated logistics specialist in outpatient setting from PCP or from urgent care. Strongly advised to stop recreational drugs and risks explained. General-patient not in any acute distress, alert awake oriented, age-appropriate HEENT-atraumatic normocephalic, neck supple without elevated JVD, no thyromegaly or carotid bruit. No lymphadenopathy bilaterally. Eyes-no icterus or pallor seen in eyes Chest-clear to auscultation bilaterally, breathing nonlabored no tachypnea, no wheezing, no crepitation, no crackles. Heart-S1-S2 normal, regular heart rate no murmur Abdomen bowel sounds positive on auscultation, soft nondistended nontender no guarding, no rigidity Skin/ Extremity- Signs of chronic appearing skin excoriation/ cellulitis present over left upper and lower extremity. Mild erythema present over back too Neurology-grossly intact, nonfocal alert awake oriented Extremity- no pedal edema able to move all 4 extremities Psychiatry - patient is not confused or agitated cooperated during physical examination *Problems/Diagnosis: (1) Cellulitis of left upper extremity Status: Acute (2) Cellulitis of left lower extremity Status: Acute Total Time Spent on D/C: > 30 Minutes Date of Service: Oct 24, 2024 Billing Provider: MU PA MD Common Visit Codes: 84384-WIL/OBS DISCH DAY >30min MU PA MD Oct 24, 2024 20:19
== END 2024-10-24 11:30 | disposition left against medical advice (07) | DRG 720 ==
LOC: ER 21:45 → SUR 3N 10-21 01:04
PROVIDERS: ADMIT Surgery Surgical Critical Care; ATTEND Nurse Practitioner Family
DX: A41.9 Sepsis, unspecified organism (principal); N17.0 Acute kidney failure with tubular necrosis; L03.116 Cellulitis of left lower limb; F31.9 Bipolar disorder, unspecified; F15.10 Other stimulant abuse, uncomplicated; Z53.21 Procedure and treatment not carried out due to patient leaving prior to being seen by health care provider; L01.09 Other impetigo; L03.114 Cellulitis of left upper limb; L23.7 Allergic contact dermatitis due to plants, except food; Z79.899 Other long term (current) drug therapy; Z88.5 Allergy status to narcotic agent; Z59.00 Homelessness unspecified
CPT/HCPCS: 36415; 73201; 73701; 80048; 80053; 80202; 80305; 81003; 82570; 83605; 83735; 84132; 84133; 84145; 84156; 84300; 84540; 85025; 86140; 87040; 87081; 87207; 93971; 96361; 96365; 96367; 96372; G0378; J0696; J1644; J2270; J2543; J3301; J3373; J3374; J3375; J7030; J7120; Q0163; Q9967

== ENCOUNTER 2024-12-02 09:24 | Emergency (ER) | payer MEDICAID ==
[~2024-12-02] VITALS: Ht 180.3 cm; Wt 88.9 kg
[~2024-12-02 09:24] MED LIST changes: +DIVA-74 PO; -NO HOME MEDS; -NYST15CR TOP; +RISP-31 PO; +TRIA15OI2 TP
[2024-12-02 09:28] VITALS: BP 131/85; PULSE 73; RESP 18; O2SAT 99
--- NOTE | 2024-12-02 10:12 | Physician Documentation ---
History of Present Illness ~ Chief Complaint: Shoulder pain Stated Complaint: SHOULDER PAIN Time Seen by MD: 09:44 Primary Medical Doctor: [facility] HPI Patient presents with complaints of right shoulder pain. He states it has been ongoing since an injury in 2019 for which he did not seek medical care. Has past medical history of bipolar, depression, drug abuse. He states yesterday he was at a job fair for which he did 20 pushups. States this exacerbated his symptoms. Tetanus within 5 years?: Yes Medication Reconciliation Allergies: Coded Allergies: codeine (Verified Allergy, Unknown, 12/02/24) N/V Scheduled Divalproex Sodium (Divalproex Sodium), 1 TAB PO HS, (Reported) Ondansetron 8mg ODT (Ondansetron Odt), 1 TAB PO Q6H Risperidone (Risperidone), 1 TAB PO HS, (Reported) Triamcinolone Acetonide (Triamcinolone Acetonide), 1 APPLIC TP BID Past Medical History Past Medical History: Bipolar, Depression Past Surgical History: noncontributory Patient History: Patient reports no known family medical history. Smoking Status: Current every day smoker Alcohol Use: None Drug Use: methamphetamine Lives with: Other Lives In: Other Review of Systems ROS Review of systems negative except documented in HPI. Physical Exam Vital Signs: RN Vital Signs have been reviewed: Yes, Temperature: 98.1, Source: Oral, Heart Rate: 73, Respiratory Rate: 18, BP: 131/85, Pulse Oximetry: 99, Weight: 88.900 Oxygen Flow Rate: 0 Pulse Oximetry Reflects: adequate oxygenation Physical Exam General: Awake, alert, oriented. No apparent distress Neck: Supple. Normal range of motion of the neck. Respiratory: Lungs are clear to auscultation bilaterally. No respiratory di stress. Chest: Normal shape and size. No accessory muscle use. Cardiovascular: Regular rate and rhythm. S1-S2. No murmur, gallop, rub. Extremities: Right shoulder with full range of motion. Crepitus present on range of motion with palpation. No pain with palpation. Casing In Line Feeder strength bilateral arms is normal. Normal range of motion of his neck. Psychiatric: Normal mood and affect. Skin: Normal color. Warm and dry. Progress Results/Orders Results/Orders Completed Orders - VENITA PARK NP Ibuprofen Tablet (Motrin Tablet) (12/02/24 10:05) Vital Signs 9/21/25 9/21/25 09:28 10:21 Temp 98.1 98.1 Pulse 73 Resp 18 B/P (MAP) 131/85 Pulse Ox 99 O2 Flow Rate 0 Medical Decision Making Findings Patient presents with right shoulder pain. He has full range of motion. He is able to do 20 pushups yesterday which exacerbated his symptoms. His medical history was reviewed in detail with. His physical exam is not consistent with rotator cuff injury. No evidence of dislocation and fracture given normal range of motion. Symptoms represent a acute exacerbation of his chronic pain. Education was provided. He will follow up with primary care provider. Warning signs and symptoms were reviewed. Differential Dx:Considerations: Include: AC separation, Adhesive capsulitis, arthritis, Bicipital tendonitis, Cervical disc disease, Dislocation, Fracture: Humerus, Fracture: Scapula, Fracture: Clavicle, Rotator cuff injury, SC dislocation, Sprain, Subacromial bursitis Departure Time of Disposition: 10:15 Disposition: 01 HOME / SELF CARE / HOMELESS Impression: Primary Impression: Shoulder pain Qualified Codes: M25.511 - Pain in right shoulder; G89.29 - Other chronic pain Condition: Stable Discharge Instructions: Shoulder Pain, [id number] Additional Instructions: Continue with ice/heat as needed to help with pain. Do not apply ice directly to the skin as this can cause a burn. May take [id number]-[id number] ibuprofen for minor pain or fever. Recommend that you follow up with your primary care provider within the next week. Return for new or worsening symptoms. Referrals: NO PRIMARY CARE PROVIDER (PCP) Education Educated: Patient Educated regarding: diagnosis, treatment, need for follow up Signature Scribe Signature: No scribe Attestation: The note accurately reflects work and decisions made by me.Venita Jones NP 12/02/24 18:08 This note was created with the assistance of voice recognition software whereby errors in grammar, syntax, and/or spelling may have occurred despite active proofreading efforts by the author. Please do not hesitate to contact the provider for clarification or for questions regarding the content of this document. VENITA PARK NP Dec 02, 2024 10:12
[2024-12-02] MEDS: ibuprofen tablet 400 MG TABLET PO ONE (10:17)
[2024-12-02 10:21] VITALS: TEMP 98.1
== END 2024-12-02 10:23 | disposition home or self-care (01) ==
LOC: ER 09:24
DX: M25.511 Pain in right shoulder (principal); F15.90 Other stimulant use, unspecified, uncomplicated; G89.29 Other chronic pain; F31.9 Bipolar disorder, unspecified; F17.200 Nicotine dependence, unspecified, uncomplicated; Z88.5 Allergy status to narcotic agent; Z79.899 Other long term (current) drug therapy
CPT/HCPCS: 99283

== ENCOUNTER 2024-12-25 00:04 | Emergency (ER) | payer MEDICAID ==
[~2024-12-25] VITALS: Ht 177.8 cm; Wt 89.8 kg
[2024-12-25 00:08] VITALS: BP 164/77; PULSE 92; TEMP 98.2; O2SAT 100
--- NOTE | 2024-12-25 00:36 | Physician Documentation ---
History of Present Illness ~ Chief Complaint: Back Pain Stated Complaint: RIGHT SIDE OF BODY DISCOMFORT Time Seen by MD: 00:36 Primary Medical Doctor: [facility] HPI Patient presents to the emergency room with concerns for neck pain and back pain. He states he believes he pulled a muscle when he is wearing a backpack trying to throw a football. No direct traumas or falls. No history of back surgeries/major back traumas. No bladder or bowel incontinence Medication Reconciliation Allergies: Coded Allergies: codeine (Verified Allergy, Unknown, 12/25/24) N/V Scheduled Divalproex Sodium (Divalproex Sodium), 1 TAB PO HS, (Reported) Ondansetron 8mg ODT (Ondansetron Odt), 1 TAB PO Q6H Risperidone (Risperidone), 1 TAB PO HS, (Reported) Triamcinolone Acetonide (Triamcinolone Acetonide), 1 APPLIC TP BID Past Medical History Past Medical History: Bipolar, Depression Past Surgical History: noncontributory Patient History: Patient reports no known family medical history. Alcohol Use: None Drug Use: methamphetamine Lives with: Other Lives In: Other Review of Systems ROS All review of systems negative except as per HPI Physical Exam Physical Exam Vital Signs: Temperature: 98.2, Source: Oral, Heart Rate: 92, Respiratory Rate: 16, BP: 164/77, Pulse Oximetry: 100, Weight: 89.820 Oxygen Flow Rate: 0 Physical Exam General: Patient is awake, alert, oriented x4 in no acute distress Head: Normocephalic and atraumatic. Eyes: Conjunctival normal. EOMI. PERRL. ENT: Mucous membranes moist. Neck: Supple, trachea is midline. Tenderness to palpation to superior left trapezius muscle distribution. Chest: Clear to auscultation bilaterally without rales, rhonchi, or wheezes. There is no accessory muscle use or retractions. Cardiac: RRR without murmurs, gallops, or rubs. Abd: Soft, nondistended, nontender, with normoactive bowel sounds. No guarding, rebound, or rigidity. Extremities: Normal strength. Normal range of motion. No deformities or edema. Back: Mild diffuse tenderness to palpation to bilateral lumbar Progress Results/Orders Results/Orders Vital Signs 12/25/24 00:08 Temp 98.2 Pulse 92 Resp 16 B/P (MAP) 164/77 Pulse Ox 100 O2 Flow Rate 0 Medical Decision Making Additional info obtained from: other Findings Patient presents to the emergency room for evaluation of back pain as per HPI differentials include but are not limited to musculoskeletal pain, aortic pathology, cauda equina, shingles. Patient appears comfortably walking he does have some tenderness to palpation to his left trapezius muscle and lower back. Given distribution of pain I suspect musculoskeletal pain. I have considered meningitis that has well but no meningismus that has demonstrated. Differential Dx:Considerations: , Cholelithiasis Departure Disposition: HOME / SELF CARE / HOMELESS Impression: Primary Impression: Back problem Condition: Stable Discharge Instructions: Acute Back Pain, Adult Referrals: NO PRIMARY CARE PROVIDER (PCP) Prescriptions Cyclobenzaprine* (Cyclobenzaprine*) 10 Mg Tablet 1 TAB PO Q8H for muscle spasms for 10 Days, #30 TAB 0 Refills Prov: SENTHIL SARGENT MD 12/25/24 Meloxicam* (Meloxicam*) 7.5 Mg Tablet 1 TAB PO DAILY for 30 Days, #30 TAB 0 Refills Prov: SENTHIL SARGENT MD 12/25/24 Education Educated: Patient Educated regarding: diagnosis, treatment, need for follow up Signature Scribe Signature: No scribe Attestation: The note accurately reflects work and decisions made by me.Senthil Sargent MD 12/25/24 00:47 SENTHIL SARGENT MD Dec 25, 2024 00:36
[2024-12-25] MEDS ORDERED: CYCL-1 PO (00:47)
[2024-12-25] MEDS ORDERED: MELO-100 PO (00:47)
[2024-12-25] MEDS: orphenadrine citrate 60mg/2ml inj. IM ONE (00:56)
[2024-12-25 00:57] VITALS: RESP 18
[2024-12-25] MEDS: ketorolac trometh 15mg/ml vial 15 MG/ML ML IM ONE (00:57)
== END 2024-12-25 01:02 | disposition home or self-care (01) ==
LOC: ER 00:05
DX: M54.9 Dorsalgia, unspecified (principal); M54.2 Cervicalgia; F15.90 Other stimulant use, unspecified, uncomplicated; F31.9 Bipolar disorder, unspecified; Z88.5 Allergy status to narcotic agent; Z79.899 Other long term (current) drug therapy
CPT/HCPCS: 96372; 99284; J1885; J2360

== ENCOUNTER 2024-12-27 16:43 | Emergency (ER) | payer MEDICAID ==
[~2024-12-27 16:43] MED LIST changes: +CYCL-1 PO; +MELO-100 PO
== END 2024-12-27 18:15 | disposition left against medical advice (07) ==
LOC: ER 16:43
DX: M54.9 Dorsalgia, unspecified (principal); Z88.5 Allergy status to narcotic agent; Z53.21 Procedure and treatment not carried out due to patient leaving prior to being seen by health care provider

== ENCOUNTER 2025-01-22 13:35 | Emergency (ER) | payer MEDICAID | END 2025-01-22 13:47 | disposition left against medical advice (07) | LOC: ER 13:37 | DX: M54.9 Dorsalgia, unspecified (principal); Z53.21 Procedure and treatment not carried out due to patient leaving prior to being seen by health care provider ==

== ENCOUNTER 2025-01-23 12:50 | Emergency (ER) | payer MEDICAID ==
[~2025-01-23] VITALS: Ht 177.8 cm; Wt 87.5 kg
[2025-01-23 12:59] VITALS: BP 109/79; PULSE 90; RESP 16; TEMP 98; O2SAT 97
[2025-01-23] MEDS ORDERED: ketorolac trometh 30MG/ML vial 30 MG/ML VIAL IM ONE (14:20)
== END 2025-01-23 15:14 | disposition left against medical advice (07) ==
LOC: ER 12:51
DX: M79.604 Pain in right leg (principal); Z53.21 Procedure and treatment not carried out due to patient leaving prior to being seen by health care provider
CPT/HCPCS: 99281

== ENCOUNTER 2025-01-25 13:07 | Emergency (ER) | payer MEDICAID ==
[~2025-01-25] VITALS: Ht 175.3 cm; Wt 87.1 kg
[2025-01-25 13:42] VITALS: BP 118/65; PULSE 94; RESP 16; TEMP 97.8; O2SAT 99
--- NOTE | 2025-01-25 14:34 | Physician Documentation ---
History of Present Illness ~ Chief Complaint: Leg Pain Stated Complaint: LEG PAIN Time Seen by MD: 13:58 [facility] Source: patient Mode of Arrival: POV Exam Limitations: no limitations HPI 44-year-old male who is here with chief complaint right lower leg pain which he states started three weeks ago. He states prior to three weeks ago he was completely fine. He does report that he had an injury 30 years ago and had caramel cutter helper lilia pain in his leg for about seven years after the injury until they removed a plate but states that the pain that he is experiencing right now started only three weeks ago. Our records indicate however that the pain has been ongoing for a few months as patient first presented with his pain here in October. The other discrepancy in patient's history is is that he reports that nobody has done anything here except for recommended that I take ibuprofen. I specifically ask if any imaging studies have been done including an ultrasound to look for a blood clot and he states no no one has done an x-ray or anything. The records show a different story it shows patient has had a CT scan of his lower extremity as well as a vascular ultrasound. Tetanus witin 5 years: Yes Medication Reconciliation Allergies: Coded Allergies: No Known Allergies (Unverified , 01/25/25) Scheduled Cyclobenzaprine* (Cyclobenzaprine*), 1 TAB PO Q8H Divalproex Sodium (Divalproex Sodium), 1 TAB PO HS, (Reported) Meloxicam* (Meloxicam*), 1 TAB PO DAILY Ondansetron 8mg ODT (Ondansetron Odt), 1 TAB PO Q6H Risperidone (Risperidone), 1 TAB PO HS, (Reported) Triamcinolone Acetonide (Triamcinolone Acetonide), 1 APPLIC TP BID Past Medical History Past Medical History: Bipolar, Depression Past Surgical History: noncontributory Patient History: Patient reports no known family medical history. Alcohol Use: None Drug Use: methamphetamine Lives with: Other Lives In: Other Review of Systems All Other Systems at this time: Reviewed and Negative Physical Exam Vital Signs: Temperature: 97.8, Source: Oral, Heart Rate: 94, Respiratory Rate: 16, BP: 118/65, Pulse Oximetry: 99, Weight: 87.100 Oxygen Flow Rate: 0 Physical Exam General Appearance: Alert, WD/WN. PATIENT APPEARS EASILY AGGITATED. HE IS STANDING IN THE EXAM ROOM WITH TIGHT DOMINIQUE PANTS ON MAKING IT DIFFICULT TO EVALUATE HIS LEG. WHEN I ASK TO LOOK AT HIS LEG, HE PULLS HIS PANT LEG UP BUT APPEARS IRRITATED BY MY QUESTIONS. HEENT: NCAT, PERRL, EOMI. Neck: Supple, trachea midline. Cardiovascular: RRR. No m/r/g. Lungs: CTAB. Breathing unlabored Extremities: Normal inspection. No edema. Skin: Warm/dry, normal color Neurological: Alert and oriented x4, normal gait. Psychiatric: Affect congruent with mood. Progress Results/Orders Results/Orders Vital Signs 01/25/25 13:42 Temp 97.8 Pulse 94 Resp 16 B/P (MAP) 118/65 Pulse Ox 99 O2 Flow Rate 0 Medical Decision Making Additional information obtaine: N/A Findings N/A General Diff Dx:Considerations: Include: Abrasion, Contusion, Fracture, Hematoma, Laceration, Malunion, Neurovascular injury, Open fracture, Sprain, Ulcer, Other Knee Diff Dx:Considerations: Unlikely: Other Ankle Diff Dx:Considerations: Unlikely: Other Foot Diff Dx:Considerations: Unlikely: Other Toe Diff Dx:Considerations: Unlikely: Other Departure Time of Disposition: 14:32 Disposition: 01 HOME / SELF CARE / HOMELESS Impression: Primary Impression: Leg pain, right Condition: Stable Discharge Instructions: RICE Therapy for Routine Care of Injuries, [id number] Additional Instructions: YOU REPORTED YOU HAD NOT HAD ANY IMAGING STUDIES INCLUDING VASCULAR STUDIES AND THAT SYMPTOMS STARTED THREE WEEKS AGO THE RECORDS HOWEVER INDICATE THAT YOU FIRST PRESENTED IN HERE IN OCTOBER AND THAT YOU HAVE HAD CT SCANS, XRAYS, WELL VASCULAR STUDIES AT THIS POINT, THIS IS A CHRONIC ISSUE THAT NEEDS TO BE MANAGED OUTSIDE THE ER THERE IS NO NEW REDNESS OF YOUR LEG OR SIGNS OF INFECTION AND THERE HAVE BEEN NO NEW INJURIES TO WARRANT REPEATING IMAGING STUDIES DONE IN OCTOBER Referrals: NO PRIMARY CARE PROVIDER (PCP) Education Educated: Patient Educated regarding: diagnosis, treatment, need for follow up Signature Scribe Signature: X Attestation: CHICO NIEVES Jan 25, 2025 14:33
== END 2025-01-25 14:46 | disposition home or self-care (01) ==
LOC: ER 13:07
DX: M79.661 Pain in right lower leg (principal); F15.90 Other stimulant use, unspecified, uncomplicated; F31.9 Bipolar disorder, unspecified
CPT/HCPCS: 99282

== ENCOUNTER 2025-02-13 20:48 | Emergency (ER) | payer MEDICAID ==
[2025-02-13 21:24] VITALS: BP 136/72; PULSE 78; RESP 15; O2SAT 98
--- NOTE | 2025-02-13 21:37 | Physician Documentation ---
History of Present Illness General Stated Complaint: OD [facility] Mode of Ar[facility]: EMS History of Present Illness Initial Comments This is a 44-year-old male brought in from the [facility] by EMS, per EMS report, the patient emptied an entire bottle of Depakote into his mouth, patient was then witnessed to spit medications out and EMS was called by staff at the [facility], patient reported to EMS that he may have swallowed 3-6 of the pills though did not give a clear answer. EMS reported patient reported this was not a suicide attempt in his he did not have suicidal ideation. Patient was placed in lobby by EMS to be triaged though immediately left after he was placed in the lobby. Medication Reconciliation Allergies: Coded Allergies: No Known Allergies (Unverified , 01/25/25) Scheduled Cyclobenzaprine* (Cyclobenzaprine*), 1 TAB PO Q8H Divalproex Sodium (Divalproex Sodium), 1 TAB PO HS, (Reported) Meloxicam* (Meloxicam*), 1 TAB PO DAILY Ondansetron 8mg ODT (Ondansetron Odt), 1 TAB PO Q6H Risperidone (Risperidone), 1 TAB PO HS, (Reported) Triamcinolone Acetonide (Triamcinolone Acetonide), 1 APPLIC TP BID Past Medical History Past Medical History: Bipolar, Depression Past Surgical History: noncontributory Smoking: Non-Smoker Alcohol Use: None Drug Use: methamphetamine Lives with: Other Lives In: Other Review of Systems ROS As stated above in the HPI, otherwise all systems are reviewed and negative. Physical Exam Physical Exam Vital Signs: Heart Rate: 78, Respiratory Rate: 15, BP: 136/72, Pulse Oximetry: 98 Physical Exam VITALS: Reviewed and as above. GENERAL: Alert, nontoxic appearing, no apparent distress, disheveled appearing RESPIRATORY: No increased work of breathing, no respiratory distress, yelling at EMS in full clear sentences PSYCH: Agitated appearing Progress Results/Orders Results/Orders Vital Signs 02/13/25 21:24 Pulse 78 Resp 15 B/P (MAP) 136/72 Pulse Ox 98 Medical Decision Making Additional information obtaine: other (EMS provider) Findings I received report from EMS as patient was being wheeled into the emergency dep artment lobby, I attempted to interact with patient however he did not engage me in conversation and continued to yell at EMS, upon being wheeled into the lobby by EMT he immediately left the emergency department while I was obtaining report from the other EMS provider. Patient was well-appearing and it was reassuring that he reported no SI to EMS provider. I have high suspicion that this was an attempt to gain housing in the emergency department rather than in the [facility]. Differential Diagnosis Suicidal, overdose, homicidal, malingering, homeless, hungry Departure Disposition: LEFT AWOL/ELOPED Impression: Primary Impression: Homeless Referrals: NO PRIMARY CARE PROVIDER (PCP) Signature Scribe Signature: No Scribe Attestation: The note accurately reflects work and decisions made by me.KAROLINE Solano 02/14/25 01:05 MELISSA MCELROY Feb 13, 2025 21:37
== END 2025-02-13 21:27 | disposition left against medical advice (07) ==
LOC: ER 20:48
DX: F31.9 Bipolar disorder, unspecified (principal); F15.90 Other stimulant use, unspecified, uncomplicated; Z59.00 Homelessness unspecified; Z79.899 Other long term (current) drug therapy; Z53.21 Procedure and treatment not carried out due to patient leaving prior to being seen by health care provider

== ENCOUNTER 2025-02-15 19:28 | Emergency (ER) | payer MEDICAID ==
[~2025-02-15] VITALS: Ht 170.2 cm; Wt 87.1 kg
[2025-02-15 20:01] VITALS: BP 158/97; PULSE 92; RESP 15; TEMP 96.8; O2SAT 97
--- NOTE | 2025-02-15 20:21 | RADIOLOGY REPORT ---
EXAM: DI FOOT, COMPLETE (3VW MIN) INDICATION: FOOT PAIN TECHNIQUE: 3 views of the left foot COMPARISON: DI FOOT, COMPLETE (3VW MIN) on DOS: 12/11/22 FINDINGS/IMPRESSION: Trace Achilles insertional enthesophyte. Laterally applied plate and screw construct of the distal fibula with medial malleolar screws. Ossicles of the anterior aspect of the tibiotalar articulation and above the talus.
--- NOTE | 2025-02-15 22:47 | Physician Documentation ---
History of Present Illness General Chief Complaint: Foot pain Stated Complaint: FOOT PAIN Time Seen by MD: 22:20 Primary Medical Doctor: [facility] History of Present Illness Initial Comments This is a 44-year-old gentleman who presents for evaluation of left foot pain, swelling. He attributes that to the fact that his foot was chafing in his shoe. He feels that today had swollen up and is now red, very painful to put a shoe back on. Worse with ambulation. Did not attempt to treat it with a any medication. He states that he has been prior to that wearing his shoes for three days straight without taking them off. Denies any other concerns such as chest pain, difficulty breathing, nausea, vomiting, diarrhea, abdominal pain. He denies any of my concerns for tobacco, alcohol or illicit substances use Medication Reconciliation Allergies: Coded Allergies: No Known Allergies (Unverified , 01/25/25) Scheduled Cyclobenzaprine* (Cyclobenzaprine*), 1 TAB PO Q8H Divalproex Sodium (Divalproex Sodium), 1 TAB PO HS, (Reported) Meloxicam* (Meloxicam*), 1 TAB PO DAILY Ondansetron 8mg ODT (Ondansetron Odt), 1 TAB PO Q6H Risperidone (Risperidone), 1 TAB PO HS, (Reported) Triamcinolone Acetonide (Triamcinolone Acetonide), 1 APPLIC TP BID Past Medical History Past Medical History: Bipolar, Depression Past Surgical History: noncontributory Smoking: Non-Smoker Alcohol Use: None Drug Use: methamphetamine Lives with: Other Lives In: Other Review of Systems ROS 10 point review of systems was performed and unless noted above in HPI is negative for acute process/complaint. Physical Exam Physical Exam Vital Signs: Temperature: 96.8, Source: Temporal, Heart Rate: 92, Respiratory Rate: 15, BP: 158/97, Pulse Oximetry: 97, Weight: 87.100 Physical Exam Physical examination: GENERAL: Awake, alert, oriented, GCS 15, no apparent distress, non-toxic appearing, answers questions, follows commands appropriately. HEENT: Atraumatic, normocephalic, pupils equal, extraocular muscles intact Active gross movements, sclerae anicteric, mucus membranes moist, no stridor. NECK: Midline, no JVD CARDIOVASCULAR: Good skin perfusion without evidence of pallor, mottling. PULMONARY: Nonlabored, symmetric chest rise, no audible wheezing, no accessory muscle use, no respiratory distress, speaking in full sentences. GASTROINTESTINAL: Not distended. NEUROLOGIC: Lucid with normal mental status. Normal facial symmetry. Moves all extremities symmetrically and with purpose. No truncal ataxia. Speech is fluid without evidence of dysarthria or aphasia, no focal deficits appreciated. EXTREMITIES: Acute deformities Skin: warm, dry PSYCHIATRIC: Normal affect, normal insight, normal concentration. Focused exam: Left foot is examined. There is several areas of erythema, calor, tenderness to palpation concerning for cellulitis. There is also evidenc e of poor hygiene. No macerated skin, no skin breakdown, no ulcerations. Progress Results/Orders Results/Orders Orders - NITESH OVALLE DO Foot, Complete (3vw Min) (02/15/25 20:03) Completed Orders - NITESH OVALLE DO Foot, Complete (3vw Min) (02/15/25 20:03) Vital Signs 02/15/25 20:01 Temp 96.8 Pulse 92 Resp 15 B/P (MAP) 158/97 Pulse Ox 97 Medical Decision Making Additional information obtaine: N/A Findings Facility Status: ED Holds, RME process The plan was discussed with the patient, who demonstrates clear understanding of the plan and is in agreement with the plan unless otherwise noted in the chart. All questions have been answered, all concerns were addressed unless otherwise documented. I was available throughout their ED stay for frequent reassessment and questions. Differential Diagnoses (considered and possible or likely): [Foot cellulitis, foot pain, chronic, less likely abscess, unlikely necrotizing infection, less likely to be trench foot] ??Differential Diagnoses (considered and unlikely, not requiring evaluation currently): [See above. Neurovascularly baseline.] MDM Data Please see HPI for the following: Independent Historians and external Records Review. Historian: [Patient] Independent Historians: ?[None] Medication Management: [Reviewed medication list] Social History and determinants: [Reviewed] Please see the body of the note for the following: Any independent interpretations of ECG, imaging studies. All vitals signs/haemodynamics, ordered tests were independently reviewed and interpreted by myself. Nursing triage complaint and vitals reviewed, additional nursing notes were reviewed as available and I agree unless otherwise noted or documented in contradiction in the chart Vital Signs: Independently reviewed Labs: Independently interpreted Imaging: Independently interpreted Old Medical Records: Independently reviewed, see HPI for relevant summary and information Additionally notably showing: [Hemodynamically stable. X-ray shows no acute injury.] Tests considered but not ordered include: [Blood work has been considerably does not appear to be necessary given clinical nature of diagnosis cellulitis] Social Determinants of Health Impact: Patient was evaluated in [facility], or [facility] [place] access to healthcare due to below par ratio of patient to medical providers. [] Comorbid Conditions Impacting Present Evaluation and Care/Treatment: [Poor hygiene, homelessness] Management Discussions with other Healthcare Providers: [None] Treatment and Disposition Medication Management (Given or considered): [Pain management]. See EMR for details Consideration for Hospitalization/Escalation/Deescalation of Care: Admission for observation has been considered, [however the patient is able to tolerate p.o., their symptoms are controlled, they are able to rely on oral medications, and their chief complaint/diagnosis can be managed on outpatient basis.] ?ED Course:?[No clinical deterioration] ?Shared decision making:?[Patient is hemodynamically stable for discharge home with follow with their primary care provider. [ ] Specific and cautious return precautions provided and discussed with full understanding. Any incidental findings were also discussed and follow up recommendations given. [] All questions answered. Patient/family were able to verbalize back return precautions. Patient/family agree to plan. Copies of imaging and laboratory studies were provided.] Code status:?FULL Please see the full Electronic Medical Record for full details of nursing documentation, medications list, other records of complete past medical history and conditions, vital signs, laboratory studies, and any radiologic study interpretations by radiologists. Portions of this note were completed using [employer] dictation software and as a result there may exist minor errors in spelling. I have reviewed elements of past family and social history and agree as included in note. Differential Diagnosis See body of main note for differential diagnosis Departure Disposition: 01 HOME / SELF CARE / HOMELESS Impression: Primary Impression: Cellulitis of left foot Condition: Improved Discharge Instructions: Cellulitis Referrals: NO PRIMARY CARE PROVIDER (PCP) Prescriptions Cephalexin*Monohydrate* (Keflex*) 500 Mg Capsule 1 CAP PO Q6H for 10 Days, #40 CAP Prov: NITESH OVALLE DO 02/15/25 Naproxen (Naproxen) 500 Mg Tablet 1 TAB PO Q12H, #20 TAB Prov: NITESH OVALLE DO 02/15/25 Education Educated: Patient Educated regarding: diagnosis, treatment, prognosis, need for follow up Signature Scribe Signature: No scribe Attestation: The note accurately reflects work and decisions made by me.Nitesh Ovalle, 02/15/25 22:49 NITESH OVALLE DO Feb 15, 2025 22:47
[2025-02-15] MEDS ORDERED: NAPR-56 PO (22:48)
[2025-02-15] MEDS ORDERED: CEPH-585 PO (22:48)
[2025-02-15] MEDS: ibuprofen tablet 400 MG TABLET PO ONE (23:14)
== END 2025-02-15 23:16 | disposition home or self-care (01) ==
LOC: ER 19:28
DX: L03.116 Cellulitis of left lower limb (principal); F31.9 Bipolar disorder, unspecified; F15.90 Other stimulant use, unspecified, uncomplicated
CPT/HCPCS: 73630; 99283

== ENCOUNTER 2025-02-16 16:29 | Emergency (ER) | payer MEDICAID ==
[~2025-02-16] VITALS: Ht 175.3 cm; Wt 84.5 kg
[~2025-02-16 16:29] MED LIST changes: +CEPH-585 PO; +NAPR-56 PO
[2025-02-16 16:51] VITALS: BP 116/63; PULSE 83; RESP 16; O2SAT 96
--- NOTE | 2025-02-16 17:15 | RADIOLOGY REPORT ---
CLINICAL INFORMATION: Foot pain. TECHNIQUE: 3 views of the left foot were obtained. COMPARISON: DI FOOT, COMPLETE (3VW MIN) on DOS: 02/15/25, DI FOOT, COMPLETE (3VW MIN) on DOS: 12/11/22 FINDINGS: No acute fracture or dislocation. Partially visualized postsurgical changes in the distal tibia and distal fibula. Visualized portions of the surgical hardware appear grossly intact. Chronic ossicles project over the anterior aspect of the ankle on the lateral view, not well correlated on the other views. Adjacent soft tissues are unremarkable. IMPRESSION: 1. No evidence of acute bony abnormality. 2. Nonacute findings as described above.
--- NOTE | 2025-02-16 18:12 | Physician Documentation ---
History of Present Illness ~ Chief Complaint: Foot pain Stated Complaint: L FOOT PAIN Time Seen by MD: 18:07 OK to notify your PCP?: Yes Primary Medical Doctor: [facility] Source: patient Mode of Arrival: POV Exam Limitations: no limitations HPI Reports having left foot pain for the past day but is ambulatory. Has not taken any medication for his pain. He reports using some meth use today and states that he has been having trouble sleeping. He is having rapid speech and flight of ideas. Denies any HI or SI. Tetanus witin 5 years: Yes Medication Reconciliation Allergies: Coded Allergies: No Known Allergies (Unverified , 02/16/25) Scheduled Cephalexin*Monohydrate* (Keflex*), 1 CAP PO Q6H Cyclobenzaprine* (Cyclobenzaprine*), 1 TAB PO Q8H Divalproex Sodium (Divalproex Sodium), 1 TAB PO HS, (Reported) Meloxicam* (Meloxicam*), 1 TAB PO DAILY Naproxen (Naproxen), 1 TAB PO Q12H Ondansetron 8mg ODT (Ondansetron Odt), 1 TAB PO Q6H Risperidone (Risperidone), 1 TAB PO HS, (Reported) Triamcinolone Acetonide (Triamcinolone Acetonide), 1 APPLIC TP BID Past Medical History Past Medical History: Bipolar, Depression Past Surgical History: noncontributory Patient History: Patient reports no known family medical history. Alcohol Use: None Drug Use: methamphetamine Lives with: Other Lives In: Other Review of Systems All Other Systems at this time: Reviewed and Negative Physical Exam Vital Signs: RN Vital Signs have been reviewed: Yes, Temperature: 98.9, Source: Temporal, Heart Rate: 83, Respiratory Rate: 16, BP: 116/63, Pulse Oximetry: 96, Weight: 84.500 Oxygen Flow Rate: 0 Pulse Oximetry Reflects: adequate oxygenation Physical Exam General: Alert, no distress. HEENT: No injection, moist mucous membranes. Neck: Full range of motion. Respiratory: No respiratory distress, equal chest rise and fall. Chest: No accessory muscle use. Cardiovascular: Regular rate and rhythm. Gastrointestinal: Nondistended. Extremities: Normal range of motion, no deformity. Able to bear weight, left foot nontender. Neurologic: Oriented x4. Psychiatric: Normal mood and affect. Skin: Normal color, warm and dry. Progress Results/Orders Reviewed/noted all lab results: Yes Results/Orders Orders - KELSI SINGLETARY MD Foot, Complete (3vw Min) (02/16/25 16:56) Completed Orders - KELSI SINGLETARY MD Foot, Complete (3vw Min) (02/16/25 16:56) EKG/XRAY/CT/US/VASC/MRI Bone/Soft Tissue X-Ray (Ext.) : Additional Comment Left foot x-ray as interpreted by me; no acute fracture, no soft tissue swelling, no dislocation. Medical Decision Making Additional information obtaine: old records Findings During exam his foot stopped hurting when he loosen his boots. He is requesting to be discharged and states that his foot no longer hurts. We discussed his X ray results which show no acute fracture or changes. There is some chronic ossicles project over the anterior aspect of the ankle in the lateral side but is not well correlate it on other views. There is partially visualized post surgical changes to the distal tibia and distal fibula. General Diff Dx:Considerations: Include: Fracture Knee Diff Dx:Considerations: Include: Other Ankle Diff Dx:Considerations: Include: Other Foot Diff Dx:Considerations: Include: Dislocation, Fracture-metatarsal, Fracture-phalynx, Fracture-tarsal, Neurovascular injury, Sprain Toe Diff Dx:Considerations: Include: Other Departure Disposition: 01 HOME / SELF CARE / HOMELESS Impression: Primary Impression: Foot pain Condition: Stable Discharge Instructions: Sprains Additional Instructions: Follow up with her primary care provider in the next week and return back here for any new or worsening symptoms. Left foot X ray results shows: FINDINGS: No acute fracture or dislocation. Partially visualized postsurgical changes in the distal tibia and distal fibula. Visualized portions of the surgical hardware appear grossly intact. Chronic ossicles project over the anterior aspect of the ankle on the lateral view, not well correlated on the other views. Adjacent soft tissues are unremarkable. IMPRESSION: 1. No evidence of acute bony abnormality. 2. Nonacute findings as described above. Referrals: NO PRIMARY CARE PROVIDER (PCP) Education Educated: Patient Educated regarding: diagnosis, treatment, prognosis, need for follow up Additional Comment Medical Screen Exam This patient recieved a medical screening examination. After reviewing the individual's medical complaints with presenting symptoms and performing an appropriate physical examination, it was determined that no immediate life- threatening emergency medical condition is present. This individual is also not a women having contractions. Signature Scribe Signature: . Attestation: Scribed for Jessica Monroe by Jessica Jones NP . 02/16/25 20:15 Parts of this note were created using [employer] voice recognition software program. While efforts were made to correct any mistakes made by this voice recognition software program, nonsensical phrases may remain in this note. In addition, there may be errors and syntax, grammar, content and spelling. JESSICA MONROE Feb 16, 2025 18:12 KELSI SINGLETARY MD Feb 21, 2025 05:56
[2025-02-16 18:48] VITALS: TEMP 98.9
== END 2025-02-16 18:51 | disposition home or self-care (01) ==
LOC: ER 16:30
DX: M79.672 Pain in left foot (principal); F15.90 Other stimulant use, unspecified, uncomplicated; F31.9 Bipolar disorder, unspecified
CPT/HCPCS: 73630; 99283

== ENCOUNTER 2025-02-19 09:12 | Emergency (ER) | payer MEDICAID ==
[~2025-02-19] VITALS: Ht 175.3 cm; Wt 83.0 kg
--- NOTE | 2025-02-19 11:37 | Physician Documentation ---
History of Present Illness ~ Chief Complaint: Wound Re-Check Stated Complaint: FOOT INFECTION Time Seen by MD: 09:16 OK to notify your PCP?: Yes Primary Medical Doctor: [facility] Source: patient, RN/ HPI Patient is seen today with complaints of sores on his feet from walking around with boots with no socks. Patient states his feet have also been wet. Patient has no other concern or complaint at this time. Patient states symptoms of recently been noticed a few days ago. Tetanus within 5 years?: Yes Medication Reconciliation Allergies: Coded Allergies: No Known Allergies (Unverified , 02/16/25) Scheduled Cephalexin*Monohydrate* (Keflex*), 1 CAP PO Q6H Cyclobenzaprine* (Cyclobenzaprine*), 1 TAB PO Q8H Divalproex Sodium (Divalproex Sodium), 1 TAB PO HS, (Reported) Meloxicam* (Meloxicam*), 1 TAB PO DAILY Naproxen (Naproxen), 1 TAB PO Q12H Ondansetron 8mg ODT (Ondansetron Odt), 1 TAB PO Q6H Risperidone (Risperidone), 1 TAB PO HS, (Reported) Triamcinolone Acetonide (Triamcinolone Acetonide), 1 APPLIC TP BID Past Medical History Past Medical History: Bipolar, Depression Past Surgical History: noncontributory Patient History: Patient reports no known family medical history. Alcohol Use: None Drug Use: methamphetamine Lives with: Other Lives In: Other Review of Systems Constitutional: Denies: chills, fever, weakness Eyes: Denies: pain, blurred vision ENT: Denies: ear pain, nose pain, throat pain, mouth pain Respiratory: Denies: cough, shortness of breath Cardiovascular: Denies: chest pain, palpitations Gastrointestinal: Denies: abdominal pain, nausea, vomiting Genitourinary: Denies: burning, dysuria Male Genitalia: Denies: penile discharge, testicular pain Neurological: Denies: headache, dizziness Musculoskeletal: Denies: pain, swelling Integumentary: Denies: rash, lesions Allergic/Immunologic: Denies: hives, itching Hematologic/Lymphatic: Denies: no symptoms reported Psychiatric: Denies: depression, anxiety Physical Exam Vital Signs: Temperature: 97.9, Source: Oral, Heart Rate: 73, Respiratory Rate: 18, BP: 135/83, Pulse Oximetry: 100, Weight: 83.000 Oxygen Flow Rate: 0 Physical Exam General: Awake and Alert, no acute distress. HEENT: Conjunctiva pink, Sclera clear, Mucus Membranes moist. Neck: Supple without masses and tenderness. Resp: Unlabored. Lungs clear to auscultation bilaterally. Heart: Regular Rate and rhythm, normal S1 and S2 without murmur, rub or gallop. Abdomen: Soft and non tender no organomegaly Extremities: No cyanosis,clubbing or edema. Skin: Patient on exam does have sores on his feet on the dorsum of his right great toe and his right heel likely from abrasion or consistent rubbing of the skin on his boots. Feet appear very moist chronically in her could be a fungal component possibly. No sign of purulent drainage or ulceration or honeycomb crusted discharge. Progress Results/Orders Results/Orders Vital Signs 02/19/25 09:13 Temp 97.9 Pulse 73 Resp 18 B/P (MAP) 135/83 Pulse Ox 100 O2 Flow Rate 0 Medical Decision Making Additional information obtaine: N/A Findings Patient is seen today with complaints of sores on his feet from walking around with boots with no socks. Patient states his feet have also been wet. Patient has no other concern or complaint at this time. Patient states symptoms of recently been noticed a few days ago. Differential Dx:Considerations: Include: Abscess, Cellulitis, Dressing change, Healing wound Departure Disposition: 01 HOME / SELF CARE / HOMELESS Impression: Primary Impression: Wound Additional Impressions: Tinea pedis Qualified Codes: B35.3 - Tinea pedis Trench foot Qualified Codes: T69.021A - Immersion foot, right foot, initial encounter Condition: Stable Discharge Instructions: Wound Care, Adult Additional Instructions: Patient is seen today with complaints of sores on his feet from walking around with boots with no socks. Patient states his feet have also been wet. Patient has no other concern or complaint at this time. Patient states symptoms of re cently been noticed a few days ago. Referrals: NO PRIMARY CARE PROVIDER (PCP) Signature Scribe Signature: No scribe Attestation: No scribe JEFFREY FAROOQ PAC Feb 19, 2025 11:37
[2025-02-19] MEDS: clotrimazole topical cream 15gm tube TP STA (12:19)
[2025-02-19 12:20] VITALS: BP 122/87; PULSE 81; RESP 16; TEMP 97.9; O2SAT 100
== END 2025-02-19 12:23 | disposition home or self-care (01) ==
LOC: ER 09:12
DX: B35.3 Tinea pedis (principal); F15.90 Other stimulant use, unspecified, uncomplicated; F31.9 Bipolar disorder, unspecified
CPT/HCPCS: 99283